=== PATIENT | female | born 1980 | race Asian ===

== ENCOUNTER 2017-07-12 11:41 | Emergency (ER) | payer MEDICAID, SELFPAY ==
[2017-07-12 11:44] VITALS: BP 134/86; PULSE 78; RESP 14; TEMP 36.6; O2SAT 100; BMI 36.5
--- NOTE | 2017-07-12 12:03 | ED.DCSUM_ITS ---
- ER Visit Summary Date of Service: 07/12/17 Chief Complaint: [Pain left leg] History of Present Illness: The patient is a 36 F [presents to the emergency department with pain in her left leg that started 4 days ago. Patient denies any significant trauma other than that she states that she picked her 3-year- old son up and felt initially a mild twinge of discomfort in her left leg and hip. Patient states progressively the pain is worsened and now describes a pain that starts posterior aspect of her left hip and radiates down the lateral aspect of her leg to about the knee. Patient denies any weakness in the extremity. Patient denies any back pain. Patient denies loss of bowel or bladder function. Patient denies saddle anesthesia. Patient was seen in urgent care yesterday and told use ibuprofen and follow-up with her primary care physician. Patient states the pain is made worse with walking and certain position movements.] Physical Examination: [HEENT-PERRLA, EOMI. Cranial nerves II through XII grossly intact. TMs clear. Mucous membranes moist. No adenopathy. Cardiovascular-regular rate and rhythm without murmur or ectopy Lungs-clear to auscultation, chest wall stable without crepitus or subcu emphysema Abdomen-normoactive bowel sounds, soft, nontender, no rebound or rigidity, no peritoneal signs. Back exam-patient has no tenderness over the thoracic or lumbar spine. Patient has negative straight leg raises bilaterally. Patient has no tenderness over the left piriformis. Deep tendon reflexes are plus 2 out of 4 bilaterally at the patella and Achilles. Patient has normal L5 extension bilaterally. Patient has normal sensation to light touch. Extremities-intact ?4, normal range of motion, normal pulses, atraumatic]. Patient has no edema of the left lower extremity. Patient does not have any tenderness to palpation over the lateral left thigh or left hip. Test Results: [None indicated] Emergency Department Course and Treatment: [Patient will be given a prescription for Triangle and Flexeril. Patient advised to follow-up with her primary care physician Dr. Angel Vincent within the next 5-7 days. Patient tells me that her sister has had some back issues with similar type pain radiating to her left leg and she has had some herniated disks in her back.] Treatment Plan: [Follow-up with primary care physician as if her symptoms persist or worsen may need imaging such as MRI. Patient will be given a prescription for Flexeril and Triangle] Disposition: [Discharged home in stable condition] Impression: [Sciatica] This note was generated with [employer] dictation software. It may contain incorrect words, spelling, and punctuation that were not noted in review of the chart prior to signing ED Disposition - Plan for ED Patient: Chief Complaint: Lower Extremity Injury Referrals: Angel Vincent MD [Primary Care Provider] -
--- NOTE | 2017-07-12 12:05 | DCINST.ED_ITS ---
ED Disposition - Plan for ED Patient: Chief Complaint: Lower Extremity Injury Instructions: ED Sciatica, Understanding Sciatica Prescriptions: Hydrocodone/Acetaminophen [[place] 5-325 Tablet] 1 - 2 ea PO 4X/DAY PRN PRN 5 Days #20 tab PRN Reason: Pain Cyclobenzaprine [Flexeril] 10 mg PO TID PRN #20 tab PRN Reason: Muscle Spasm Referrals: Angel Vincent MD [Primary Care Provider] - 5-7 Days
== END 2017-07-12 12:22 | disposition home or self-care (01) ==
PROVIDERS: Emergency Provider Emergency Medicine; Family Provider Internal Medicine; PCP Internal Medicine
DX: M54.32 Sciatica, left side (principal); J45.909 Unspecified asthma, uncomplicated; Z79.899 Other long term (current) drug therapy
CPT/HCPCS: 99282

== ENCOUNTER → 2017-10-29 16:55 | Outpatient (CLI) | payer MEDICAID, SELFPAY ==
--- NOTE | 2017-10-29 16:59 | CT_ITS ---
STUDY: CT MAXILLOFACIAL SINUSES REASON FOR EXAM: Female, 37 years old. Left nasal polyp RADIATION DOSAGE (If Supplied By Facility): CTDIvol = ( 33.06 ) mGy, DLP = ( 812.16 ) mGycm TECHNIQUE: The patient was scanned in a multi detector CT scanner. High resolution axial imaging was performed without the administration of intravenous contrast material. Sagittal and coronal images were reconstructed. Individualized dose optimization techniques were used for this CT. COMPARISON: None. FINDINGS: FRONTAL SINUSES: Normal aeration, without mucosal inflammatory disease. ETHMOIDAL SINUSES: There is a mucosal retention cyst or polyp within the left posterior ethmoid air cells MAXILLARY SINUSES: Normal aeration, without mucosal inflammatory disease. SPHENOIDAL SINUSES: Normal aeration, without mucosal inflammatory disease. There is patency of the bilateral maxillary infundibuli with normal uncinate processes, ethmoid bullae, and hiatus semilunaris. Deviation of nasal septum towards the right. Soft tissue thickening of the left middle turbinate which may be consistent with mucosal polyp There is patency of the bilateral nasal airways. The visualized osseous structures are normal. The visualized bilateral orbital contents are normal. CT/Sinus/Facial Bone IMPRESSION: Mucous retention cyst or polyp within the left posterior ethmoid air cells.. Soft tissue thickening of the left middle turbinate which may be consistent with small polyp. Clinical correlation recommended Electronically Signed: Andrei Murguia MD at 20:58 EDT , Service support ,
== END ==
PROVIDERS: Family Provider Internal Medicine; PCP Internal Medicine; Visit Provider Otolaryngology
DX: J33.9 Nasal polyp, unspecified (principal)
CPT/HCPCS: 70486

== ENCOUNTER → 2017-11-13 11:40 | Outpatient (CLI) | payer MEDICAID, SELFPAY ==
[2017-11-13 14:24] LABS: Erythrocyte Sedimentation Rate 60 mm/hr (0-20)
[2017-11-13 14:26] LABS: Absolute Lymphocyte Count 2.62 X10^3/ul (0.83-4.51); Absolute Neutrophil Count 6.8 X10^3/uL (2.0-7.7); Basophil# 0.04 X10^3/uL; Basophil% 0.4 % (0-1); Eosinophil# 0.22 X10^3/uL; Eosinophils% 2.2 % (0-5); Hematocrit 36.4 % (37-47); Hemoglobin 11.7 g/dl (12.0-15.0); Lymphocyte # 2.62 X10^3/ul (4.0); Lymphocyte % 25.8 % (19-41); Mean Corp Hgb Conc 32.1 g/gl (32-36); Mean Corpuscular Hgb 25.2 pg (27.0-32.0); Mean Corpuscular Volume 78.4 fL (81-99); Mean Platelet Vol. 11.9 fl (6.2-12.0); Monocyte# 0.44 X10^3/uL; Monocyte% 4.3 % (0-10); Neutrophil # 6.81 X10^3/uL (2.7-7.7); Platelet Count 360 K/mm3 (150-450); RBC Distribution Width CV 16.4 % (11.6-14.6); RBC Distribution Width SD 46.2 fl (35.1-43.9); Red Blood Count 4.64 M/mm3 (4.2-5.4); White Blood Count 10.2 K/mm3 (4.4-11.0)
[2017-11-13 14:27] LABS: POSITIVE COUNT NO; POSITIVE DIFFERENTIAL NO; POSITIVE MORPHOLOGY NO
[2017-11-13 14:41] LABS: Vitamin B12 331 pg/mL (211-911)
[2017-11-13 14:43] LABS: ALB/GLOB Ratio 0.6 RATIO (0.9-2.4); AST(SGOT) 16 U/L (15-37); Alanine Aminotransfer ALT/SGPT 22 U/L (13-56); Albumin, Serum 3.3 g/dL (3.2-5.0); Alkaline Phosphatase 117 U/L (45-117); Anion Gap 7 (5-15); BUN 9 mg/dL (7-18); BUN/Creat Ratio 11.2 RATIO (10-20); Chloride 108 mmol/L (98-107); EST Glomerular Filtration Rate 85 mL/min (>60); Est Glom Filt Rate - Afr Amer 103 mL/min (>60); Free T3 2.6 pg/mL (2.18-3.98); Globulin 5.3 g/dL (2.2-4.2); Glucose 88 mg/dL (74-106); Iron 53 ug/dL (50-170); Potassium 3.8 mmol/L (3.5-5.1); Protein, Total 8.6 g/dL (6.4-8.2); Sodium Level 138 mmol/L (136-145); Thyroid Stim Hormone (TSH) 4.52 uIU/mL (0.358-3.74)
== END ==
PROVIDERS: Family Provider Family Medicine; PCP Family Medicine; Visit Provider Family Medicine
DX: E03.9 Hypothyroidism, unspecified (principal); R53.83 Other fatigue
CPT/HCPCS: 36415; 80053; 82306; 82533; 82607; 83540; 84439; 84443; 84481; 85025; 85652

== ENCOUNTER → 2018-01-20 16:09 | Outpatient (CLI) | payer MEDICAID, SELFPAY ==
[2018-01-20 18:12] LABS: Vitamin D,25 Hydroxy 18.1 ng/mL (29.95-100.01)
[2018-01-20 18:19] LABS: Free T3 2.7 pg/mL (2.18-3.98); T4 Free Direct 1.12 ng/dL (0.76-1.46)
== END ==
PROVIDERS: Family Provider Family Medicine; PCP Family Medicine; Visit Provider Family Medicine
DX: E03.9 Hypothyroidism, unspecified (principal)
CPT/HCPCS: 36415; 82306; 84439; 84443; 84481

== ENCOUNTER 2018-04-13 06:59 | Emergency (ER) | payer MEDICAID, SELFPAY ==
[2018-04-13 07:00] VITALS: BP 144/75; PULSE 87; RESP 16; TEMP 36.7; O2SAT 100; BMI 40.8
--- NOTE | 2018-04-13 07:15 | ED.VISSUMM ---
- ER Visit Summary Date of Service: 04/13/18 Chief Complaint: Wheezing secondary to an asthma flare History of Present Illness: The patient is a 37 F history of asthma and hypothyroidism. He states the last week she has had an asthma flare with increased wheezing. No fever. No significant cough. No hemoptysis. No chest pain. No history of DVT or PE. No recent travel or surgery. Patient was treated by an urgent care with prednisone for 5 days and was given albuterol liquid for her nebulizer at home. She states she still wheezing. She is reluctant to take prednisone states that her body gets used to it and then needs it. Physical Examination: Middle-aged female. No acute distress. Vital signs are stable. She is afebrile. Her pulse ox is 100% on room air no hypoxia. H EENT exam unremarkable. Moist mucous membranes. Neck nontender no lymphadenopathy. Lungs bilateral inspiratory and expiratory wheezing. Equal and symmetrical. No rales nor rhonchi. Heart regular rhythm rate about 90 no murmur. Abdomen is soft and nontender. Normal bowel sounds. No peritoneal signs. She is moving all 4 extremities. Calves are nontender without edema. Neurologically she is awake and alert with no focal motor deficits. Test Results: None Emergency Department Course and Treatment: Patient's history and exam are consistent with an acute asthma flare. She will be treated with DuoNeb and albuterol aerosols. P.o. Decadron and reassess. Treatment Plan: On repeat exam at 07 41 patient is improved post aerosols. She will be discharged to home with Decadron daily for the next 7 days. And additional albuterol liquid for her nebulizer. She does return if feeling worse. Follow-up if she is not improving. Disposition: Discharge Impression: Acute asthma flare with bronchospasm This note was generated with [employer] dictation software. It may contain incorrect words, spelling, and punctuation that were not noted in review of the chart prior to signing ED Disposition - Plan for ED Patient: Disposition: Home or Assisted Living Instructions: ED Bronchitis Asthmatic Prescriptions: Albuterol Aerosols [Ventolin Aerosols] 2.5 mg INHALATION Q4H PRN #25 vial Dexamethasone [Decadron] 10 mg PO DAILY 7 Days tab Referrals: Lobo Byrne MD [Primary Care Provider] - 3-5 Days if not improving Additional Instructions: An inhaler and aerosols as needed. Decadron daily to decrease the inflammation in your lungs Follow-up with your primary care physician or your director council on aging Dr. Santiago Flores if not improving.
--- NOTE | 2018-04-13 07:17 | ED.DEP ---
ED Disposition - Plan for ED Patient: Disposition: Home or Assisted Living Instructions: ED Bronchitis Asthmatic Prescriptions: Albuterol Aerosols [Ventolin Aerosols] 2.5 mg INHALATION Q4H PRN #25 vial Dexamethasone [Decadron] 10 mg PO DAILY 7 Days tab Referrals: Lobo Byrne MD [Primary Care Provider] - 3-5 Days if not improving Additional Instructions: An inhaler and aerosols as needed. Decadron daily to decrease the inflammation in your lungs Follow-up with your primary care physician or your gl accountant Dr. Santiago Flores if not improving.
--- NOTE | 2018-04-13 07:20 | DCINST.ED_ITS ---
ED Disposition - Plan for ED Patient: Disposition: Home or Assisted Living Instructions: ED Bronchitis Asthmatic Prescriptions: Albuterol Aerosols [Ventolin Aerosols] 2.5 mg INHALATION Q4H PRN #25 vial Dexamethasone [Decadron] 10 mg PO DAILY 7 Days tab Referrals: Lobo Byrne MD [Primary Care Provider] - 3-5 Days if not improving Additional Instructions: An inhaler and aerosols as needed. Decadron daily to decrease the inflammation in your lungs Follow-up with your primary care physician or your contractor general engineering Dr. Santiago Flores if not improving.
[2018-04-13] MEDS: Ipratropium/Albuterol Sulfate 3 ML AMPUL.NEB INHALATION (07:23)
[2018-04-13] MEDS: Albuterol 2.5 MG/3 ML VIAL.NEB. INHALATION (07:23)
[2018-04-13 07:24] VITALS: PULSE 86; RESP 18; O2SAT 99
[2018-04-13 07:43] VITALS: BP 128/85; PULSE 71; RESP 24; O2SAT 100
== END 2018-04-13 07:45 | disposition home or self-care (01) ==
LOC: ED 07:43
PROVIDERS: Emergency Provider Emergency Medicine; Family Provider Family Medicine; PCP Family Medicine
DX: J45.901 Unspecified asthma with (acute) exacerbation (principal); E03.9 Hypothyroidism, unspecified
CPT/HCPCS: 94640; 99282

== ENCOUNTER → 2018-05-06 08:48 | Outpatient (CLI) | payer MEDICAID, SELFPAY ==
[2018-04-13 07:00] VITALS: BMI 40.8
[2018-05-06 10:42] LABS: Thyroid Stim Hormone (TSH) 3.47 uIU/mL (0.358-3.74)
[2018-05-06 12:22] LABS: Vitamin D,25 Hydroxy 18.8 ng/mL (29.95-100.01)
== END ==
PROVIDERS: Family Provider Family Medicine; PCP Family Medicine; Referring Provider Family Medicine; Visit Provider Family Medicine
DX: E03.9 Hypothyroidism, unspecified (principal); E55.9 Vitamin D deficiency, unspecified
CPT/HCPCS: 36415; 82306; 84439; 84443

== ENCOUNTER 2018-05-31 22:04 | Emergency (ER) | payer MEDICAID, SELFPAY ==
[2018-05-31 22:05] VITALS: BP 127/82; PULSE 94; RESP 20; TEMP 36.2; O2SAT 98; BMI 36.2
[2018-05-31] MEDS: Ipratropium/Albuterol Sulfate 3 ML AMPUL.NEB INHALATION (22:17)
[2018-05-31 22:18] VITALS: PULSE 94; RESP 18
--- NOTE | 2018-05-31 22:20 | ED.VISSUMM ---
- ER Visit Summary Date of Service: 05/31/18 Chief Complaint: [] Exacerbation of asthma wheezing History of Present Illness: The patient is a 37 F [] is a long history of asthma she reports for the last for 5 days she has had wheezing despite use of her home medications, she indicates she is supposed to be on a steroid inhaler but the insurance company will not approve that medication so she has not had it. She has had a slight cough minimal rhinorrhea. She indicates is her typical usual asthma exacerbation she has no history of heart disease [place] PE or DVT she lives with her children were generally healthy she does not work Followed by Dr. Joe Masters of pulmonary Physical Examination: [] This oximeter is 95% on room air, she speaking full sentences General, no distress resting comfortably HEENT is generally unremarkable The neck is supple no adenopathy Cardiovascular, regular rate and rhythm Lungs, few scattered wheezing with good excursion Abdomen, soft nontender Extremities, no clubbing cyanosis or edema Neurologic, awake alert answering questions appropriately moving all 4 extremities Test Results: [] Emergency Department Course and Treatment: [] Currently she looks well she indicates is her typical exacerbation she was to be on a steroid inhaler the insurance company rejected that she thinks that the the insurance company may have approved the inhaler but she has not had a chance to get another prescription and try again at this time we treated her with an aerosol oral drawn, she is feeling better she is comfortable discharge home and I will Symbicort or similar steroid inhaler prescription that she can try to get filled at the pharmacy she is to return for change in symptoms otherwise follow-up with her railroad emergency services manager Treatment Plan: [] Disposition: [] Home stable Impression: [] Exacerbation of asthma This note was generated with [employer] dictation software. It may contain incorrect words, spelling, and punctuation that were not noted in review of the chart prior to signing ED Disposition - Plan for ED Patient: Referrals: Lobo Byrne MD [Primary Care Provider] -
--- NOTE | 2018-05-31 22:23 | ED.DCSUM_ITS ---
- ER Visit Summary Date of Service: 05/31/18 Chief Complaint: [] Exacerbation of asthma wheezing History of Present Illness: The patient is a 37 F [] is a long history of asthma she reports for the last for 5 days she has had wheezing despite use of her home medications, she indicates she is supposed to be on a steroid inhaler but the insurance company will not approve that medication so she has not had it. She has had a slight cough minimal rhinorrhea. She indicates is her typical usual asthma exacerbation she has no history of heart disease [place] PE or DVT she lives with her children were generally healthy she does not work Followed by Dr. Joe Masters of pulmonary Physical Examination: [] This oximeter is 95% on room air, she speaking full sentences General, no distress resting comfortably HEENT is generally unremarkable The neck is supple no adenopathy Cardiovascular, regular rate and rhythm Lungs, few scattered wheezing with good excursion Abdomen, soft nontender Extremities, no clubbing cyanosis or edema Neurologic, awake alert answering questions appropriately moving all 4 extremities Test Results: [] Emergency Department Course and Treatment: [] Currently she looks well she indicates is her typical exacerbation she was to be on a steroid inhaler the insurance company rejected that she thinks that the the insurance company may have approved the inhaler but she has not had a chance to get another prescription and try again at this time we treated her with an aerosol oral drawn, she is feeling better she is comfortable discharge home and I will Symbicort or similar steroid inhaler prescription that she can try to get filled at the pharmacy she is to return for change in symptoms otherwise follow-up with her senior java programmer analyst Treatment Plan: [] Disposition: [] Home stable Impression: [] Exacerbation of asthma This note was generated with [employer] dictation software. It may contain incorrect words, spelling, and punctuation that were not noted in review of the chart prior to signing ED Disposition - Plan for ED Patient: Referrals: Lobo Byrne MD [Primary Care Provider] -
--- NOTE | 2018-05-31 22:23 | ED.DEP ---
ED Disposition - Plan for ED Patient: Instructions: ED Reactive Airway Disease Prescriptions: Budesonide/Formoterol Fumarate [Symbicort 160-4.5 Mcg Inhaler] 10.2 gm IH DAILY #1 hfa.[email or web address] Referrals: Lobo Byrne MD [Primary Care Provider] -
[2018-05-31 22:28] VITALS: PULSE 91; RESP 16; O2SAT 97; O2SAT 98
--- NOTE | 2018-05-31 23:03 | ED.DEP ---
ED Disposition - Plan for ED Patient: Instructions: ED Reactive Airway Disease Prescriptions: Albuterol Aerosols [Ventolin Aerosols] 2.5 mg INHALATION Q4H PRN #25 vial Albuterol Inhaler [Ventolin Hfa] 1 - 2 puff INHALATION Q4H PRN PRN #1 inhaler PRN Reason: Wheezing Budesonide/Formoterol Fumarate [Symbicort 160-4.5 Mcg Inhaler] 10.2 gm IH DAILY #1 hfa.[email or web address] Referrals: Lobo Byrne MD [Primary Care Provider] -
[2018-05-31 23:35] VITALS: BP 123/84; PULSE 79; RESP 15; O2SAT 97
== END 2018-05-31 23:37 | disposition home or self-care (01) ==
LOC: ED 22:32
PROVIDERS: Emergency Provider Emergency Medicine; Family Provider Family Medicine; PCP Family Medicine
DX: J45.901 Unspecified asthma with (acute) exacerbation (principal)
CPT/HCPCS: 94640; 99282

== ENCOUNTER → 2018-10-06 09:26 | Outpatient (CLI) | payer MEDICAID, SELFPAY ==
[2018-10-06 10:43] LABS: Absolute Lymphocyte Count 2.62 X10^3/uL (0.83-4.51); Absolute Neutrophil Count 6.1 X10^3/uL (2.0-7.7); Basophil# 0.08 X10^3/uL; Basophil% 0.8 % (0-1); Eosinophil# 0.27 X10^3/uL; Eosinophils% 2.8 % (0-5); Hematocrit 38.1 % (37-47); Hemoglobin 11.6 g/dL (12.0-15.0); Lymphocyte # 2.62 X10^3/ul (4.0); Lymphocyte % 27.4 % (19-41); Mean Corp Hgb Conc 30.4 g/dL (32-36); Mean Corpuscular Hgb 24.1 pg (27.0-32.0); Mean Platelet Vol. 11.3 fl (6.2-12.0); Monocyte# 0.42 X10^3/uL; Monocyte% 4.4 % (0-10); NRBC Flagged by Analyzer 0 % (0-5); Neutrophil # 6.13 X10^3/uL (2.7-7.7); Neutrophil % 64.3 % (47-70); Platelet Count 308 K/mm3 (150-450); RBC Distribution Width CV 15.2 % (11.6-14.6); RBC Distribution Width SD 43.8 fl (35.1-43.9); Red Blood Count 4.82 M/mm3 (4.2-5.4); White Blood Count 9.6 K/mm3 (4.4-11.0)
[2018-10-06 11:27] LABS: ALB/GLOB Ratio 0.6 RATIO (0.9-2.4); AST(SGOT) 27 U/L (15-37); Alanine Aminotransfer ALT/SGPT 31 U/L (13-56); Albumin, Serum 3.1 g/dL (3.2-5.0); Alkaline Phosphatase 101 U/L (45-117); Anion Gap 5 (5-15); BUN 11 mg/dL (7-18); BUN/Creat Ratio 14.9 RATIO (10-20); Chloride 115 mmol/L (98-107); Creatinine, Serum 0.74 mg/dL (0.55-1.02); EST Glomerular Filtration Rate 93 mL/min (>60); Est Glom Filt Rate - Afr Amer 113 mL/min (>60); Globulin 4.8 g/dL (2.2-4.2); Glucose 88 mg/dL (74-106); Potassium 4.1 mmol/L (3.5-5.1); Protein, Total 7.9 g/dL (6.4-8.2); Sodium Level 144 mmol/L (136-145); Thyroid Stim Hormone (TSH) 2.43 uIU/mL (0.358-3.74)
[2018-10-06 11:32] LABS: Vitamin D,25 Hydroxy 13.5 ng/mL (29.95-100.01)
== END ==
PROVIDERS: Family Provider Family Medicine; PCP Family Medicine; Referring Provider Family Medicine; Visit Provider Family Medicine
DX: R10.9 Unspecified abdominal pain (principal); E03.9 Hypothyroidism, unspecified; E55.9 Vitamin D deficiency, unspecified
CPT/HCPCS: 36415; 80053; 82306; 84439; 84443; 85025; 87086; 87088

== ENCOUNTER → 2018-12-09 11:26 | Outpatient (CLI) | payer MEDICAID, SELFPAY ==
[2018-12-09 13:19] LABS: Vitamin D,25 Hydroxy 14.3 ng/mL (29.95-100.01)
[2018-12-09 13:20] LABS: Thyroid Stim Hormone (TSH) 2.96 uIU/mL (0.358-3.74)
== END ==
PROVIDERS: Family Provider Family Medicine; PCP Family Medicine; Visit Provider Family Medicine
DX: E03.9 Hypothyroidism, unspecified (principal); E55.9 Vitamin D deficiency, unspecified
CPT/HCPCS: 36415; 82306; 84443

== ENCOUNTER → 2019-07-02 16:50 | Outpatient (CLI) | payer MEDICAID, SELFPAY ==
[2019-07-02 18:29] LABS: Vitamin D,25 Hydroxy 16.7 ng/mL
[2019-07-02 18:33] LABS: T4 Free Direct 1.11 ng/dL (0.76-1.46); Thyroid Stim Hormone (TSH) 2.64 uIU/mL (0.358-3.74)
== END ==
PROVIDERS: PCP Family Medicine; Visit Provider Family Medicine
DX: E03.9 Hypothyroidism, unspecified (principal); E55.9 Vitamin D deficiency, unspecified
CPT/HCPCS: 36415; 82306; 84439; 84443

== ENCOUNTER → 2019-09-23 13:49 | Outpatient (CLI) | payer MEDICAID, SELFPAY ==
--- NOTE | 2019-09-23 13:54 | CT_ITS ---
STUDY: CT MAXILLOFACIAL SINUSES REASON FOR EXAM: Female, 38 years old. PT STATED PERSISTENT CONGESTION AND NASAL DRIP, TRAY K[place]A RADIATION DOSAGE (If Supplied By Facility): CTDIvol = ( 33.45 ) mGy, DLP = ( 822.36 ) mGycm TECHNIQUE: The patient was scanned in a multi detector CT scanner. High resolution axial imaging was performed without the administration of intravenous contrast material. Sagittal and coronal images were reconstructed. Individualized dose optimization techniques were used for this CT. COMPARISON: Comparison is made with prior study dated 10/29/2017. FINDINGS: There are small benign appearing submental lymph nodes. FRONTAL SINUSES: Opacification of the frontal sinuses. ETHMOIDAL SINUSES: Opacification of the ethmoid sinuses. MAXILLARY SINUSES: There is partial opacification of the left maxillary sinus. Soft tissue prominence along the medial inferior wall of the left maxillary sinus with extension into the left nasal fossa as well as the left ethmoid sinus with bony destruction. This extends into the posterior aspect of the nasal fossa. Mucosal thickening of the right maxillary sinus with extension into the right ethmoid sinus and right nasal fossa. SPHENOIDAL SINUSES: Complete opacification of the sphenoid sinus. There is patency of the bilateral maxillary infundibuli with normal uncinate processes, ethmoid bullae, and hiatus semilunaris. Normal bilateral middle turbinates. Normal bilateral inferior turbinates. There is a right sided nasal septal deviation, but without a nasal septal spur. There is patency of the bilateral nasal airways. The visualized osseous structures are normal. The visualized bilateral orbital contents are normal. CT/Sinus/Facial Bone IMPRESSION: Pansinusitis with the prominence of the soft tissue in the nasopharynx suggestive of a possible nasal polyposis more prominent on the left side. Electronically Signed: Lamin Duvall, at 14:37 EDT , Service support ,
== END ==
PROVIDERS: PCP Family Medicine; Referring Provider Otolaryngology; Visit Provider Otolaryngology
DX: J32.9 Chronic sinusitis, unspecified (principal)
CPT/HCPCS: 70486

== ENCOUNTER 2019-11-09 10:13 | Day surgery (SDC) | payer MEDICAID, SELFPAY ==
[2019-11-02 13:06] LABS: Thyroid Stim Hormone (TSH) 0.09 uIU/mL (0.358-3.74)
[2019-11-05 14:09] LABS: Thyroid Stim Hormone (TSH) 0.09 uIU/mL (0.358-3.74)
[2019-11-09] VITALS (7 sets, daily range): BP systolic 117–137; BP diastolic 69–90; PULSE 75–95; RESP 16–18; TEMP 36.4–37.1; O2SAT 96–100; BMI 37.8
--- NOTE | 2019-11-09 | ETH_PTH ---
PATIENT: PAMELA SMITH LOC: [facility] U#:[id number] AGE/SX: 39/F ROOM: RE11/09/[address]: Dr. Sam Cox MD : 1980 BED: DIS: 11/09/2019 SPEC #: [id number] RECD: 11/09/19 14:32 STATUS: FABRICE LEODAN #: [id number] GONZÁLEZ: 11/09/19 00:[address]: Sam Cox DEPT: SURGICAL PATHOLOGY RECD BY: Roman Judge ENTERED: 11/10/19 07:44 SP TYPE: ETH TISS OTHR DR: Dr. Sancho Byrne MD Tissues: A - Ethmoid sinus, NOS B - Ethmoid sinus, NOS Procedures: Decalcification bone/plaque Surgery Specimen Level IV HEADER OPERATION: Ethmoidectomy, maxillary antrostomy with tissue removal PRE-OP DIAGNOSIS: Nasal cavity polyps, chronic sinusitis TISSUE SUBMITTED: A - Contents of right maxillary and ethmoid sinus, B - Contents of left maxillary and ethmoid sinus MICROSCOPIC DIAGNOSIS A. Right maxillary and ethmoid sinus contents, excision: Consistent with chronic sinusitis. Fibrinopurulent material. B. Left maxillary and ethmoid sinus contents, excision: Consistent with chronic sinusitis. Fibrinopurulent material. Minute fragments of unremarkable bone. AM:mitchell 11/13/19 MICROSCOPIC DESCRIPTION Slides are reviewed. GROSS DESCRIPTION A - Received in fixative is one container labeled with the patient's name and designated contents of right maxillary and ethmoid sinus. The specimen consists of multiple fragments of hemorrhagic soft tissue that in aggregate measure 5 x 4 x 1.5 cm. Auto Suspension And Steering Mechanic tissue is submitted in two cassettes. B - Received in fixative is one container labeled with the patient's name and designated contents of left maxillary and ethmoid sinus. The specimen consists of multiple fragments of rosenberg hemorrhagic soft tissue mixed with fragments of bone that in aggregate measure 4 x 4 x 1 cm. Auto Suspension And Steering Mechanic tissue is submitted in two cassettes. Cassette 1 is submitted after decalcification. / SJ:mitchell 11/10/19 TC:3 CPT: 05096 x2, 84337
[2019-11-09] MEDS: Lactated Ringers 1,000 ML 100 ML IV ×2 (11:00→14:25)
[2019-11-09 11:02] LABS: Internal QC Validated? YES +Cl - CLEAR BKGD; Pregnancy, Urine Negative Negative
--- NOTE | 2019-11-09 11:47 | PCM.DC ---
You will use the following diet at home:: Regular Your food should be the consistency of: Regular Discharge Activity: No Restrictions, - - no nose blowing Additional Activity Instructions:: Start irrigation 4x/day on 11/09/19 Allergies/Adverse Reactions: Allergies No Known Allergies Allergy (Verified 10/30/19 11:22) Medications to take at Discharge Levothyroxine [Synthroid] 112 mcg PO DAILY 08/24/16 Budesonide/Formoterol Fumarate [Symbicort 160-4.5 Mcg Inhaler] 10.2 gm IH DAILY #1 hfa.aer.ad 05/31/18 Fluticasone 0.05% [Flonase Nasal [place]] 1 spray NASAL DAILY 10/30/19 Omeprazole [Prilosec] 20 mg PO PRN PRN 10/30/19 Primary Care Physician: Lboo Byrne MD [Primary Care Provider] - Test Results: Test results from this visit will be discussed in further detail at your follow-up appointment, if applicable.
[2019-11-09] MEDS: Oxymetazoline 0.05% 1 SPRAY SPRAY.BTL 3 SPRAY NASAL (13:15)
--- NOTE | 2019-11-09 13:50 | PCM.OPRPT ---
Report of Operation Date of Procedure: 11/09/19 Pre-Operative Diagnosis: chronic sinusitis Post-Operative Diagnosis: same Surgery/Procedure Performed:: Bilateral total ethmoidectomy; bilateral sphenoidotomy; bilateral frontal sinusotomy; bilateral maxillary antrostomy. Use of navigation Description of Surgical Findings:: fungus in sphenoid, bilateral ethmoid and frontal sinuses Type of Anesthesia:: General Anesthesiologist: Jovi Quinn Estimated Blood Loss (mL): 50 cc Description of Procedure: The patient was taken to the operating room on 11/09/19. The patient was placed in the supine position on the operating table. The patient was given sufficient general endotracheal anesthesia. The head of bed was elevated 30 degrees. The navigation system was placed and verified per protocol and found to be accurate. 0 and 30 degrees rigid nasal endoscopes were used throughout the entire case. The middle turbinate uncinate process and polyps were injected with 1% lidocaine with epinephrine bilaterally. The right middle turbinate was medialized with a Marinette elevator. Polyp was removed from the middle meatus using a sinus shaver. A ball-tipped sinus seeker was placed into the patient's maxillary sinus. A back biter was used to create the antrostomy. The uncinate process was taken down using a microdebrider. Next, the ethmoid bulla was opened with a small curette. Anterior and posterior ethmoidectomy were then carried out using curette, sinus shaver and 45 degree Blakesley Malik forceps. Ethmoid cells were verified for relation to the skull base and orbit prior to being entered with the navigation system. The front face of the sphenoid was opened with a suction. Jake-Cut forceps were then used to widen the opening. Next, I used the navigation suction to localize the frontal sinus opening. Tissue was removed using 90 forceps to enlarge the opening. Fungus was removed with suction. I then placed Afrin pledgets into the sinonasal cavity. Next attention was turned to the left side. The middle turbinate was medialized with a Marinette elevator. A large polyp was removed from the middle meatus using a sinus shaver. The uncinate process was taken down using a sinus shaver. In doing so, the maxillary antrostomy was created. The ethmoid bulla was opened with a small curette. Anterior posterior ethmoidectomy were then carried out using a sinus shaver, curette and Blakesley Malik forceps. Fungus was encountered and removed using suction. Ethmoid cells were verified for relation to the skull base and orbit prior to being entered with the navigation system. There was a polyp occluding the natural sphenoid ostia. This was removed with a sinus shaver. The sphenoid was then opened on the left side using a sinus shaver and confirmed with navigation. A copious amount of fungus was then removed from the sphenoid using suction and irrigation. All irrigant was suctioned from the nasopharnx. A frontal sinusotomy was created with 90 degree Blakesly Malik forceps. Extensive fungus was removed from the frontal sinus with suction. Hemostasis was then achieved using Afrin pledgets. The pledgets were then removed bilaterally and Rivas powder was applied bilaterally for absolute hemostasis. The procedure was then terminated. The patient was then awoken and brought to the recovery room in stable condition blood loss 50 ccm, replacement none. Sponge, needle, instrument count were correct at the end of the procedure.
[2019-11-09] MEDS: HYDROCODONE/APAP 7.5-325/15ML 15 ML UDC 2 ML PO (15:04)
== END 2019-11-09 17:14 | disposition home or self-care (01) ==
LOC: SDC 10:13 → AC 10:14
PROVIDERS: Anesthesiology; PCP Family Medicine; Referring Provider Otolaryngology; Visit Provider Otolaryngology
PROC: (CPT 31257; principal; 2019-11-09 11:30)
DX: J32.8 Other chronic sinusitis (principal); J33.0 Polyp of nasal cavity; K21.9 Gastro-esophageal reflux disease without esophagitis; Z11.59 Encounter for screening for other viral diseases; Z79.899 Other long term (current) drug therapy; Z79.51 Long term (current) use of inhaled steroids; J45.909 Unspecified asthma, uncomplicated
CPT/HCPCS: 00160; 31257; 31267; 31276; 61782; 36415; 81025; 84443; 87077; 87102; 87206; 87635; 88305; 88311; C9803; J7120; J2405; U0003

== ENCOUNTER → 2020-04-15 09:35 | Outpatient (CLI) | payer MEDICAID, SELFPAY ==
[2019-11-09 10:50] VITALS: BMI 37.8
[2020-04-15 13:33] LABS: Anion Gap 8 (5-15); BUN 8 mg/dL (7-18); BUN/Creat Ratio 10.6 RATIO (10-20); Calcium,Total 9.2 mg/dL (8.5-10.1); Chloride 108 mmol/L (98-107); Cholesterol 165 mg/dL (200); Creatinine, Serum 0.75 mg/dL (0.55-1.02); EST Glomerular Filtration Rate 90 mL/min (>60); Est Glom Filt Rate - Afr Amer 109 mL/min (>60); Free T3 2.5 pg/mL (2.18-3.98); Glucose 87 mg/dL (74-106); High Density Lipoprotein 50 mg/dL; Potassium 3.8 mmol/L (3.5-5.1); Sodium Level 139 mmol/L (136-145); T4 Free Direct 1.07 ng/dL (0.76-1.46); Thyroid Stim Hormone (TSH) 1.87 uIU/mL (0.358-3.74); Triglycerides 77 mg/dL; Very Low Density Lipoprotein 15 mg/dL (5-40)
[2020-04-15 14:07] LABS: Vitamin D,25 Hydroxy 10.6 ng/mL
== END ==
PROVIDERS: PCP Family Medicine; Referring Provider Family Medicine; Visit Provider Family Medicine
DX: E55.9 Vitamin D deficiency, unspecified (principal); E03.9 Hypothyroidism, unspecified; Z13.220 Encounter for screening for lipoid disorders; Z13.1 Encounter for screening for diabetes mellitus
CPT/HCPCS: 36415; 80048; 80061; 82306; 84439; 84443; 84481

== ENCOUNTER 2020-05-13 12:12 | Emergency (ER) | payer MEDICAID, SELFPAY ==
[2019-11-09 10:50] VITALS: BMI 37.8
[2020-05-13 12:13] VITALS: BP 153/94; PULSE 81; RESP 18; TEMP 36.6; O2SAT 99; BMI 35.9
--- NOTE | 2020-05-13 12:35 | CT_ITS ---
STUDY: CT BRAIN WITHOUT CONTRAST REASON FOR EXAM: Female, 39 years old. Headache, sinus pressure RADIATION DOSAGE (If Supplied By Facility): CTDIvol = ( 38.43 ) mGy, DLP = ( 655.05 ) mGycm TECHNIQUE: Transaxial CT imaging of the brain was performed without administration of intravenous contrast material. Individualized dose optimization techniques were used for this CT. COMPARISON: No relevant priors. FINDINGS: Normal soft tissue structures. Normal calvarium. Normal size ventricles and extra-axial spaces for the patient''s age. Normal white matter tracts of the cerebral hemispheres. Normal basal ganglia and thalami. Normal brainstem. Normal cerebellum. There is no intracranial hemorrhage. There are no findings of an acute ischemic infarction. There is opacification of the right maxillary sinus suggestive of a chronic changes with hyperdensity. Opacification of the ethmoid sinuses bilaterally as well as the sphenoid sinus. Mucosal thickening of the left maxillary sinus. Opacification of the frontal sinuses. CT/Brain/Head without Contrast IMPRESSION: MAE sinusitis. Electronically Signed: Lamin Duvall MD at 13:13 EDT , Service support ,
[2020-05-13] MEDS: Ketorolac 15 MG/ML Vial IV (12:52)
[2020-05-13] MEDS: DiphenhydrAMINE 50 MG/ML Syringe 25 MG IV (12:52)
[2020-05-13] MEDS: Metoclopramide 10 MG/2 ML Vial IV (12:53)
[2020-05-13] MEDS: 0.9% Normal Saline 1,000 ML 999 ML IV (12:53)
--- NOTE | 2020-05-13 13:46 | ED.VISSUMM ---
- ER Visit Summary Date of Service: 05/13/20 Chief Complaint: Headache History of Present Illness: The patient is a 39 F [] Physical Examination: [] Test Results: [] Emergency Department Course and Treatment: [] Treatment Plan: [] Disposition: [] Impression: [] This note was generated with [employer] software. It may contain incorrect words, spelling, and punctuation that were not noted in review of the chart prior to signing ED Disposition - Plan for ED Patient: Referrals: Lobo Byrne MD [Primary Care Provider] -
--- NOTE | 2020-05-13 13:51 | ED.DCSUM_ITS ---
- ER Visit Summary Date of Service: 05/13/20 Chief Complaint: Headache History of Present Illness: The patient is a [address] Chapa. Patient reports that she had surgery on her sinuses in October [address] Sam Cox. States that last month she was placed on cefdinir for a sinus infection. She feels that way again currently. Patient reports that she has a headache that is at the bridge of her nose and behind both eyes began approximately 1 week ago. Is gradually gotten worse. Is sharp pain is 10 of 10 at worst 9-10 currently. Is worsened by leaning her head forward. Relieved by ibuprofen. She denies any constitutional symptoms. No fever, chills, nausea, or vomiting. No numbness or weakness. No change in her vision. Physical Examination: Vitals: Stable. Afebrile. General: Well-nourished and well-developed. Head: Normocephalic atraumatic. Neck: Supple, no lymphadenopathy. No JVD. Nontender. Cardiovascular: Regular rate and rhythm. No murmurs. Respiratory: No respiratory distress. Clear to auscultation bilaterally. Abdominal: Soft, nontender, nondistended, normal bowel sounds. No guarding, rebound, or peritoneal signs. Back: Nontender. Extremities: Nontender, no edema. Skin: Normal color, no rash. Neurologic: Alert and oriented ?3. Cranial nerves II through XII are intact. Normal strength and sensation. Psych: Normal affect. Test Results: Clinical Impression(s) from Imaging Studies Brain CT 05/13/20 12:35 IMPRESSION: MAE sinusitis. Electronically Signed: Lamin Duvall MD at 13:13 EDT , Service support , Emergency Department Course and Treatment: Patient was given Toradol, Benadryl, and Reglan IV. She was given Levaquin p.o. Treatment Plan: Patient was discussed with Dr. Calle who reviewed the CT and her surgery results. She had a fungal infection at in October. He would like her placed on Levaquin, Medrol Dosepak, and instructed to irrigate her nose. Follow-up Dr. Sam Cox in a week for another exam. Return to the emergency department for any worsening symptoms. Disposition: To home in improved and stable condition. Impression: 1. Pansinusitis. This note was generated with [employer] dictation software. It may contain incorrect words, spelling, and punctuation that were not noted in review of the chart prior to signing ED Disposition - Plan for ED Patient: Instructions: ED Sinus Headache Prescriptions: Levofloxacin [Levaquin] 750 mg PO DAILY #10 tablet MethylPREDNISolone DosePak [Medrol DosePak] 4 mg PO UD #1 box Naproxen [Naprosyn] 500 mg PO BID #14 tablet Hydrocodone Bitart/Apap 5-325 [[place] 5MG-325MG] 1 tablet PO Q4H PRN PRN 2 Days #10 tablet PRN Reason: Pain Referrals: Sam Cox MD [STAFF PHYSICIAN] - 10-14 Days if not better
[2020-05-13] MEDS: MethylPREDNISolone 125 MG/2 ML Vial IV (14:06)
[2020-05-13] MEDS: levoFLOXacin 750 MG Tablet PO (14:06)
[2020-05-13 14:34] VITALS: BP 142/78; PULSE 89; RESP 16; O2SAT 99
== END 2020-05-13 14:35 | disposition home or self-care (01) ==
PROVIDERS: Emergency Provider Emergency Medicine; PCP Family Medicine
DX: J32.4 Chronic pansinusitis (principal); J45.909 Unspecified asthma, uncomplicated
CPT/HCPCS: 70450; 96361; 96374; 96375; 99283; J7030; A4216

== ENCOUNTER → 2020-08-01 15:43 | Outpatient (CLI) | payer MEDICAID, SELFPAY | PROVIDERS: PCP Family Medicine; Visit Provider Family Medicine | DX: E55.9 Vitamin D deficiency, unspecified (principal) | CPT/HCPCS: 36415; 82306 ==

== ENCOUNTER → 2020-08-05 12:32 | Outpatient (CLI) | payer MEDICAID, SELFPAY ==
[2020-08-05 15:33] LABS: Vitamin B12 448 pg/mL (211-911)
[2020-08-05 15:39] LABS: Hematocrit 36.8 % (37-47); Hemoglobin 11.1 g/dL (12.0-15.0); Mean Corp Hgb Conc 30.2 g/dL (32-36); Mean Corpuscular Hgb 23.4 pg (27.0-32.0); Mean Corpuscular Volume 77.6 fL (81-99); Mean Platelet Vol. 12.1 fl (6.2-12.0); Platelet Count 331 K/mm3 (150-450); RBC Distribution Width CV 16.3 % (11.6-14.6); RBC Distribution Width SD 45.7 fl (35.1-43.9); Red Blood Count 4.74 M/mm3 (4.2-5.4); White Blood Count 10.3 K/mm3 (4.4-11.0)
[2020-08-05 15:44] LABS: ALB/GLOB Ratio 0.8 RATIO (0.9-2.4); AST(SGOT) 20 U/L (15-37); Alanine Aminotransfer ALT/SGPT 26 U/L (13-56); Albumin, Serum 3.5 g/dL (3.2-5.0); Alkaline Phosphatase 130 U/L (45-117); Anion Gap 6 (5-15); BUN 10 mg/dL (7-18); BUN/Creat Ratio 12.5 RATIO (10-20); Chloride 106 mmol/L (98-107); EST Glomerular Filtration Rate 84 mL/min (>60); Est Glom Filt Rate - Afr Amer 102 mL/min (>60); Globulin 4.6 g/dL (2.2-4.2); Glucose 115 mg/dL (74-106); Iron 36 ug/dL (50-170); Potassium 3.8 mmol/L (3.5-5.1); Protein, Total 8.1 g/dL (6.4-8.2); Rheumatoid Factor < 10.0 IU/mL (<15); Sodium Level 140 mmol/L (136-145); T4 Free Direct 1.05 ng/dL (0.76-1.46); Thyroid Stim Hormone (TSH) 2.09 uIU/mL (0.358-3.74)
[2020-08-05 15:55] LABS: Erythrocyte Sedimentation Rate 36 mm/hr (0-30)
[2020-08-07 14:17] LABS: ANTINUCLEAR ANTIBODIES DIRECT Negative (Negative)
== END ==
PROVIDERS: PCP Family Medicine; Referring Provider Family Medicine; Visit Provider Family Medicine
DX: M79.10 Myalgia, unspecified site (principal); R53.83 Other fatigue; E03.9 Hypothyroidism, unspecified
CPT/HCPCS: 36415; 80053; 82607; 83540; 84439; 84443; 85027; 85652; 86038; 86140; 86431

== ENCOUNTER 2020-09-22 11:53 | Day surgery (SDC) | payer MEDICAID, SELFPAY ==
--- NOTE | 2020-09-02 09:14 | PCM.HP.BLA ---
History and Physical Date of Admission: 09/02/20 [facility] 09/02/2020 OB/Gynecology Abi Scott MD MARINE PAINTER Abnormal uterine bleeding (AUB) +2 more Dx Telemedicine; Referred by Self Reason for Visit Progress Notes Abi Scott MD (Physician) ? ? MARINE PAINTER Expand AllCollapse All VIRTUAL VISIT H&P NOTE ? This is a virtual visit using Alternative video platform. It required patient-provider interaction for the medical decision making as documented below. ? Darinel Corral is a 39 year old female seen for preoperative visit for hysteroscopy, D&C possible suction D&C for likely retained products of conception after an elective termination of in June 2020-surgery scheduled for [facility] on September 06, 2020. Patient reports has been having bleeding since her D&C light bleeding. Patient underwent pelvic ultrasound which shows a heterogeneous mass that demonstrates vascularity with fluid on the posterior aspect the mass measures 2.7 x 1.9 cm. This could potentially represent products of conception. Patient was placed on doxycycline 100 mg twice daily for 10 days. Patient offers no other concerns at this time. ? HISTORY REVIEWED (electronic chart updated): PAST MEDICAL HISTORY PAST MEDICAL HISTORY Diagnosis Date ? Acquired hypothyroidism 04/04/2017 ? Severe persistent asthma without complication ? ? PAST SURGICAL HISTORY PAST SURGICAL HISTORY Procedure Laterality Date ? SECTION HX ? 2014 ? 2007, ? FARZANA US GUIDED NEEDLE BREAST BIOPSY RT Right 2016 ? breast cyst, benign ? NASAL SURGERY PROCEDURE ? 11/16/2019 ? REDUCTION OF LARGE BREAST Bilateral 2011 ? FAMILY HISTORY FAMILY HISTORY Problem Relation Age of Onset ? other (Other) Mother ? ? low blood pressure ? Hypertension Father ? ? Diabetes Father ? ? other (Other) Sister ? ? pituitary tumor, benign ? None Brother ? ? Asthma Paternal Grandmother ? ? SOCIAL HISTORY Social History ? Tobacco Use ? Smoking status: Never Smoker ? Smokeless tobacco: Never Used ? Tobacco comment: No smoking in childhood or current home. Vaping Use ? Vaping Use: Never used Substance Use Topics ? Alcohol use: No ? Drug use: No ? CURRENT MEDICATIONS Current Outpatient Medications Medication Sig ? doxycycline (VIBRA-TABS) 100 mg tablet Take 1 tablet by mouth twice daily for 10 days. ? norgestimate 0.25 mg-ethinyl estradiol 35 mcg (SPRINTEC) 0.25-35 mg-mcg per tablet Take 1 tablet by mouth once daily. ? omeprazole (PRILOSEC) 20 mg capsule take 1 capsule by mouth twice a day (Patient not taking: Reported on 08/19/2020) ? budesonide-formoterol (SYMBICORT) 160-4.5 mcg/actuation inhaler Inhale 2 Puffs as instructed twice daily. ? albuterol (PROVENTIL) 2.5 mg /3 mL (0.083 %) nebulizer solution Use 3 mL via nebulizer every 4 hours as needed for Wheezing/Shortness of Breath. Use over 5-15minutes. ? cholecalciferol, vitamin D3, 50,000 unit tab Take by mouth once each week. ? fluticasone (FLONASE) 50 mcg/actuation nasal spray Use 2 Sprays in each nostril once daily. ? No current facility-administered medications for this visit. ALLERGIES ALLERGIES No Known Allergies ? REVIEW OF SYSTEMS: GENERAL: feeling well without fatigue, no recent change in weight, no fever ? PHYSICAL EXAMINATION: ? VIDEO EXAM: (if completed, performed via video enabled technology) GENERAL: alert and appropriate, in no distress, well-hydrated, well nourished and happy, smiling, interactive SKIN: no rash noted HEAD: normocephalic, no abnormality or lesion noted NEUROLOGIC: no obvious deficit ? ASSESSMENT: (N93.9) Abnormal uterine bleeding (AUB) (primary encounter diagnosis) (O03.4) Retained products of conception following (E34.9) Elevated serum hCG ? PLAN: Hysteroscopy, D&C possible suction D&C. ? Pt has been counseled on risks/benefits and alternatives of surgery including but not limited to anesthesia, bleeding, infection, uterine perforation with subsequent injury to pelvic structures including bowel, bladder, ureters and vessels. Pt wishes to proceed with surgery at this time. ? Will sign consent day of surgery PRE and POST op instructions reviewed ? ? There are no Patient Instructions on file for this visit. ? Medical Decision Making: ? Problems: Moderate: New problem with uncertain prognosis Risk: Moderate: Decision on minor surgery w/ risk factors ? Medical Decision Making Level: 4 - Moderate ? Abi Helms MD v
[2020-09-22] VITALS (11 sets, daily range): BP systolic 109–129; BP diastolic 65–81; PULSE 84–104; RESP 14–16; TEMP 35.9–36.7; O2SAT 95–100; BMI 36.7
[2020-09-22 12:33] LABS: Internal QC Validated? YES +Cl - CLEAR BKGD; Pregnancy, Urine Negative Negative
[2020-09-22 12:44] LABS: Hematocrit 39.2 % (37-47); Hemoglobin 11.9 g/dL (12.0-15.0); Mean Corp Hgb Conc 30.4 g/dL (32-36); Mean Corpuscular Hgb 22.8 pg (27.0-32.0); Mean Platelet Vol. 10.7 fl (6.2-12.0); Platelet Count 386 K/mm3 (150-450); RBC Distribution Width CV 16.9 % (11.6-14.6); RBC Distribution Width SD 45.1 fl (35.1-43.9); Red Blood Count 5.23 M/mm3 (4.2-5.4); White Blood Count 11.1 K/mm3 (4.4-11.0)
[2020-09-22] MEDS: Lactated Ringers 1,000 ML 100 ML IV (12:45)
[2020-09-22] MEDS: Doxycycline 100 MG CAPSULE 200 MG PO (12:45)
[2020-09-22] MEDS: Lidocaine 1% (20 ml mdv) 20 ML Vial (13:21)
--- NOTE | 2020-09-22 13:22 | OP.PCM_ITS ---
Report of Operation Date of Procedure: 09/22/20 Pre-Operative Diagnosis: AUB, Retained POC Post-Operative Diagnosis: same Surgery/Procedure Performed:: Hysteroscopy, Suction D&C Description of Surgical Findings:: small amount of possible Retained POC in uterus. both tubal ostia are visualized Surgeon: Abi Helms Type of Anesthesia: Local MAC Special Medications: 1% lidocaine Specimen's removed: Products of conception, Endometrial Curetting Drains: none Estimated Blood Loss (mL): <5cc Fluids Replaced: 500 Description of Procedure: After informed consent was obtained patient was taken to OR and placed in supine position. Anesthesia was given. patient was placed in yellow fin stirrups and prepped and draped in normal sterile fashion. bladder was drained with straight catheter. Weighted speculum placed in posterior fornix of vaginal, single tooth tenaculum was used to gently grasped anterior lip of cervix. . Cervix was then gently dilated in an incremental fashion. Was adequate dilation was achieved the 3mm Hysteroscope was inserted, Some tissue likely consistent with POC was seen on posterior aspect of uterus. at this time Suction D&C performed. A 6mm [place] island[place] suction catheter was placed. suction curettage performed until no tissue was expelled and cavity was deemed empty. Very gentle sharp curettage was performed- no further tissue remained. The tissue was then sent to pathology for examination. No complications. At this time procedure was deemed complete and successful. Tenaculum removed, speculum removed. Good hemostasis appreciated. Vaginal sweep was negative. Instrument and lap count correct x 2. I anticipate normal postoperative course. Grafts/Implants Used: none Procedure Start Time: 13:10 Procedure Stop Time: 13:21 Complications none Admit VTE Documentation VTE Present on Admission: Yes VTE Mechan Device Prophylaxis: SCD's VTE Pharm Prophylaxis ordered?: No Reason prophylaxis not ordered:: Procedure Not Indicated
--- NOTE | 2020-09-22 13:26 | EX.PCM.DISCH ---
Discharge Instructions Procedure D&C Diet Discharge Diet: No restrictions Activity May resume sexual activity in: 1 week Dressing / Incision Call your doctor if you observe: Fever of 101 or Higher, Inability to urinate, Using more than 1 pad per hour and Uncontrolled pain Follow Up Care Please Follow Up With: Abi Helms MD When: 1-2 weeks post OP if you need an appointment please call [phone] Test Results: Test results from this visit will be discussed in further detail at your follow-up appointment, if applicable. Discharge Plan Admission Attending Provider: Abi Helms Primary Care Provider: Lobo Byrne Discharge Orders/Prescriptions Prescriptions: No Action budesonide-formoterol 6 GM HFA aerosol inhaler 10.2 gm IH DAILY Qty: 1 RF: 0 fluticasone propionate 1 SPRAY spray,suspension 1 spray NASAL DAILY RF: 0 omeprazole 20 MG capsule 20 mg PO PRN PRN (Reason: GERD) RF: 0 cholecalciferol (vitamin D3) [Vitamin D3] 50 mcg (2,000 unit) Tablet 50 mcg PO DAILY RF: 0 Disposition Discharge Orders: Discharge Patient (Routine); Ordered 09/22/20 Ordered By: Dr. Abi Helms
--- NOTE | 2020-09-22 13:35 | POC_PTH ---
PATIENT: PAMELA SMITH LOC: [facility] U#:[id number] AGE/SX: 39/F ROOM: RE09/22/[address]: Dr. Aib Helms, MDDOB: 1980 BED: DIS: 09/22/2020 SPEC #: [id number] RECD: 09/22/20 15:08 STATUS: FABRICE ALCOCER #: [id number] GONZÁLEZ: 09/22/20 13:[address]: Abi Helms DEPT: SURGICAL PATHOLOGY RECD BY: April Sharma ENTERED: 09/23/20 08:29 SP TYPE: PROD CONC OTHR DR: Dr. Sancho Byrne MD Tissues: Product of conception, NOS Procedures: Surgery Specimen Level IV HEADER OPERATION: Hysteroscopy, suction dilation and curettage PRE-OP DIAGNOSIS: Abnormal uterine bleeding, retained products of conception TISSUE SUBMITTED: Products of conception MICROSCOPIC DIAGNOSIS Endometrium, curettage: Transition endometrium. Rare fragments of benign squamous mucosa. See comment. AM:mitchell 09/26/2020 COMMENT Chorionic villi, decidualized stroma or trophoblastic cells are not identified. Clinical correlation is suggested. MICROSCOPIC DESCRIPTION Slides are reviewed. GROSS DESCRIPTION Received in fixative is one container labeled with the patient's name and designated endometria curettings. The specimen consists of multiple irregular fragments of light to dark rosenberg soft tissue that in aggregate measure 3 x 2 x 0.2 cm. The specimen is totally submitted in one cassette. / AM:mitchell 09/23/20 TC:5 [facility]: [id number]
[2020-09-22] MEDS: HYDROcodone Bitartrate/Apap 5/325 Tablet PO (14:52)
== END 2020-09-22 15:27 | disposition home or self-care (01) ==
LOC: SDC 11:54 → AC 11:55
PROVIDERS: Anesthesiology; PCP Family Medicine; Referring Provider Obstetrics & Gynecology; Visit Provider Obstetrics & Gynecology
PROC: 0UDB8ZZ Extraction of Endometrium, Via Natural or Artificial Opening Endoscopic (ICD-10-PCS; CPT 58558; principal; 2020-09-22 13:20)
DX: O03.4 Incomplete spontaneous abortion without complication (principal); K21.9 Gastro-esophageal reflux disease without esophagitis; M19.90 Unspecified osteoarthritis, unspecified site
CPT/HCPCS: 59812; 81025; 85027; 88305; J7120

== ENCOUNTER 2020-10-24 19:51 | Emergency (ER) | payer MEDICAID, SELFPAY ==
[2020-10-24 19:52] VITALS: BP 144/78; PULSE 90; RESP 18; TEMP 37.1; O2SAT 98; BMI 35.9
[2020-10-24 21:39] LABS: Mucous, Urine 0 SEEN /hpf (<or=2+); White Blood Cells 0 SEEN /hpf (0-5)
--- NOTE | 2020-10-24 21:46 | ED.VIS.FEGU ---
HPI HPI - Female History of Present Illness Chief Complaint: Female C/O Narrative Narrative: Patient presenting for evaluation secondary to pelvic pain. Patient reports to me that she is 1 month status post hysterectomy secondary to abnormal vaginal bleeding. Patient states that over the course last 3 days she has been dealing with pelvic pain. She reports that it is a sharp cramping type sensation that has been associated with some dysuria. She denies any hematuria. She denies any vaginal discharge. She does state that this would be the normal timing for her menses. She denies any fevers nausea vomiting or diarrhea associated with this. Patient reports that she called her [employer]ICE PRESIDENT UND[employer]WRITING and they recommended that she come to the emergency department for this. No real exacerbating relieving factors. Review of systems otherwise negative. [facility] Medical History Arthritis Asthma Chronic cough Gastric reflux Non-smoker Shortness of breath on exertion Home Medications budesonide-formoterol 10.2 gm IH DAILY #1 hfa.aer.ad 05/31/18 [Rx Last Taken 11/09/19 07:00] fluticasone propionate 1 spray NASAL DAILY 10/30/19 [History Last Taken Unknown] omeprazole 20 mg PO PRN PRN 10/30/19 [History Last Taken Unknown] cholecalciferol (vitamin D3) [Vitamin D3] 50 mcg PO DAILY 09/15/20 [History Last Taken Unknown] ibuprofen 400 mg PO Q6H PRN 10/24/20 [History Last Taken Unknown] Allergy/AdvReac Type Severity Reaction Status Date / Time No Known Allergies Allergy Verified 10/24/20 19:53 Surgical History History of bilateral breast reduction surgery History of History of ethmoidectomy History of hysterectomy Social History Smoking Status: Never smoker ROS ROS ED Constitutional Constitutional ED: Denies chills or fever(s) ENT ENT ED: Denies sore throat Cardiovascular Cardiovascular: Denies chest pain Respiratory/Chest Respiratory/Chest: Denies cough or dyspnea Gastrointestinal Gastrointestinal: Reports abdominal pain Genitourinary Genitourinary ED: Reports dysuria Musculoskeletal Musculoskeletal: Denies myalgias Integumentary Denies rash Neurologic Neurologic: Denies paresthesias or weakness Psychiatric Psychiatric: Denies depression Endocrine Endocrinology: Denies polyuria Hematologic/Lymphatic Hematologic/Lymphatic: Denies easy bleeding or easy bruising Allergic/Immunologic Allergic/Immunologic ED: Denies urticaria EXAM Physical Exam Const Vital Signs: 10/24/20 19:52 Temperature 98.7 F Temperature Source Temporal Pulse Rate 90 Respiratory Rate 18 Blood Pressure 144/78 H Blood Pressure Mean 100 Pulse Ox 98 Oxygen Delivery Method Room Air Positive well nourished and well developed General Appearance ED: well developed and NAD HEENT normocephalic and atraumatic Eyes EOMs intact bilaterally General Eye ED: Negative for pale conjunctiva or scleral icterus Neck no lymphadenopathy and supple Resp normal respiratory effort and clear to auscultation bilaterally Cardio regular rate, regular rhythm, no murmurs and peripheral pulses 2+ throughout GI non-distended and no masses GI Narrative: Suprapubic tenderness to palpation no guarding or rebound. No evidence of surgical incisions on the abdomen Palpation: soft; Negative for guarding, rigid or rebound tenderness present Back/Spine no CVA tenderness Extremity full ROM General Extremety ED: Negative for edema General Extremity: Negative for edema Neuro moves all extremities and no sensory deficits noted Sensorium / Orientation: alert, oriented to person, oriented to place and oriented to time Motor Exam: strength 5/5 throughout Psych mental status grossly normal Skin Rashes: no rashes MDM MDM MDM Narrative Medical decision making narrative: Patient presented with suprapubic pain and dysuria. She reported she had a recent hysterectomy. Urinalysis was initially obtained which was found to be negative. Given the fact that the patient tells me that she had a recent surgical procedure I performed labs and CT scan she was given Toradol for treatment of her pain. CBC and chemistry were found to be unremarkable. CT abdomen and pelvis per radiology was found to be negative. I reviewed patient's records, she actually did not have a hysterectomy but had a hysteroscopy with evacuation of products of conception. Patient states that now would be around the typical time for her menses, I believe that this is simply dysmenorrhea. Patient was given reassurance, she was recommended conservative management measures. Patient was discharged in stable condition. Lab Data Labs: Laboratory Results - last 24 hr 10/24/20 10/24/20 10/24/20 21:30 22:23 22:23 WBC 9.9 RBC 4.60 Hgb 10.5 L Hct 35.8 L MCV 77.8 L MCH 22.8 L MCHC 29.3 L RDW Std Deviation 50.1 H RDW Coeff of Farn 17.9 H Plt Count 349 MPV 10.9 Immature Gran % (Auto) 0.400 Neut % (Auto) 55.0 Lymph % (Auto) 35.0 Swain % (Auto) 6.2 Eos % (Auto) 2.8 Baso % (Auto) 0.6 Absolute Neuts (auto) 5.5 Absolute Lymphs (auto) 3.47 Nucleated RBC % 0 Sodium 140 Potassium 4.0 Chloride 107 Carbon Dioxide 26.0 Anion Gap 7 BUN 12 Creatinine 0.66 Estim Creat Clear Calc 84.65 Est GFR (MDRD) Af Amer 127 Est GFR (MDRD) Non-Af 105 BUN/Creatinine Ratio 18.2 Glucose 105 Calcium 8.5 Urine Color Yellow Urine Clarity Sl. Cloudy Urine pH 7.0 Ur Specific [place] 1.010 Urine Protein Negative Urine Glucose (UA) Normal Urine Ketones Negative Urine Occult Blood Negative Urine Nitrite Negative Urine Bilirubin Negative Urine Urobilinogen Normal Ur Leukocyte Esterase Negative Urine RBC 0-5 SEEN Urine WBC 0 SEEN Ur Squamous Epith Cells 0-5 SEEN Urine Bacteria RARE Urine Mucus 0 SEEN Radiography Diagnostic Testing: Radiology Impression Abdomen/Pelvis CT 10/24/20 22:09 IMPRESSION: No acute abnormalities in the abdomen or pelvis. Electronically Signed: Sancho Hopper MD at 23:35 EDT Tel , Service support , Discharge Plan Triage Chief Complaint: Female C/O ED Provider: Eduardo Lu Dx/Rx/DC Orders Clinical Impression: Dysmenorrhea Prescriptions: No Action budesonide-formoterol 6 GM HFA aerosol inhaler 10.2 gm IH DAILY Qty: 1 RF: 0 fluticasone propionate 1 SPRAY spray,suspension 1 spray NASAL DAILY RF: 0 omeprazole 20 MG capsule 20 mg PO PRN PRN (Reason: GERD) RF: 0 cholecalciferol (vitamin D3) [Vitamin D3] 50 mcg (2,000 unit) Tablet 50 mcg PO DAILY RF: 0 ibuprofen 200 mg Tablet 400 mg PO Q6H PRN (Reason: Pain) RF: 0 Primary Care Provider: Lobo Byrne Referrals: Lobo Byrne MD [Primary Care Provider] - As Needed Disposition Disposition: Home, Self Care
[2020-10-24 21:49] LABS: Color, Urine Yellow (Yellow); Glucose, Dipstick Normal (Normal); Ketone-Dipstick Negative (Negative); Leukocyte Esterase-Dipstick Negative /ul (Negative); Nitrite-Dipstick Negative (Negative); Occult Blood-Urine Negative /ul (Negative); Protein-Dipstick Negative (Negative); Urine Bilirubin Dipstick Negative (Negative); Urine Clarity Sl. Cloudy (Clear); Urine Urobilinogen Normal (Normal)
[2020-10-24 22:00] LABS: Bacteria RARE /hpf (None Seen); Red Blood Cells-Urine 0-5 SEEN /hpf (0-5); Squamous Epithelial Cells - UA 0-5 SEEN /hpf (5-10)
--- NOTE | 2020-10-24 22:09 | CT_ITS ---
INDICATION: Pelvic pain EXAMINATION: CT Abdomen And Pelvis W/ Contrast Injection TECHNIQUE: Helically acquired images were obtained of the abdomen and pelvis after IV contrast. A radiation dose optimization technique was used for this scan. IV Contrast dosage and agent: IV 100mL [id number]-300 Oral contrast: None. COMPARISON: None. FINDINGS: Visualized lung bases: Unremarkable Liver: Unremarkable Gallbladder: Contracted. Spleen: Unremarkable Pancreas: Unremarkable Adrenal Glands: Unremarkable Kidneys: 1.7 cm simple cyst in the right lower pole. Vasculature: Unremarkable GI Tract: Unremarkable Lymphadenopathy: None Peritoneum: No ascites. Bladder: Unremarkable Reproductive organs: Unremarkable Bones/Soft tissues: No suspicious osseous or soft tissue lesions CT/Abdomen/Pelvis W IV Cont ONLY IMPRESSION: No acute abnormalities in the abdomen or pelvis. Electronically Signed: Sancho Hopper MD at 23:35 EDT Tel , Service support ,
[2020-10-24] MEDS: Ketorolac 30 MG/ML Syringe IM (22:22)
[2020-10-24 22:35] LABS: Absolute Lymphocyte Count 3.47 X10^3/uL (0.83-4.51); Absolute Neutrophil Count 5.5 X10^3/uL (2.0-7.7); Basophil# 0.06 X10^3/uL; Basophil% 0.6 % (0-1); Eosinophil# 0.28 X10^3/uL; Eosinophils% 2.8 % (0-5); Hematocrit 35.8 % (37-47); Hemoglobin 10.5 g/dL (12.0-15.0); Lymphocyte # 3.47 X10^3/ul (0.83-4.51); Mean Corp Hgb Conc 29.3 g/dL (32-36); Mean Corpuscular Hgb 22.8 pg (27.0-32.0); Mean Corpuscular Volume 77.8 fL (81-99); Mean Platelet Vol. 10.9 fl (6.2-12.0); Monocyte# 0.61 X10^3/uL; Monocyte% 6.2 % (0-10); NRBC Flagged by Analyzer 0 % (0-5); Neutrophil # 5.45 X10^3/uL (2.7-7.7); Platelet Count 349 K/mm3 (150-450); RBC Distribution Width CV 17.9 % (11.6-14.6); RBC Distribution Width SD 50.1 fl (35.1-43.9); White Blood Count 9.9 K/mm3 (4.4-11.0)
[2020-10-24 22:43] LABS: Anion Gap 7 (5-15); BUN 12 mg/dL (7-18); BUN/Creat Ratio 18.2 RATIO (10-20); Calcium,Total 8.5 mg/dL (8.5-10.1); Chloride 107 mmol/L (98-107); Creatinine, Serum 0.66 mg/dL (0.55-1.02); EST Glomerular Filtration Rate 105 mL/min (>60); Est Glom Filt Rate - Afr Amer 127 mL/min (>60); Estimated Creatinine Clearance 84.65 ml/min; Glucose 105 mg/dL (74-106); Sodium Level 140 mmol/L (136-145)
--- NOTE | 2020-10-24 23:03 | ED.RN ---
PTs IV infiltrated in CT. PT refusing a new IV. Dr. Lu was updated and okay to proceed with CT without contrast. [facility] hands assembler will proceed as ordered.
== END 2020-10-25 00:15 | disposition home or self-care (01) ==
PROVIDERS: Emergency Provider Emergency Medicine; PCP Family Medicine
DX: N94.6 Dysmenorrhea, unspecified (principal); K21.9 Gastro-esophageal reflux disease without esophagitis; J45.909 Unspecified asthma, uncomplicated; Z79.899 Other long term (current) drug therapy
CPT/HCPCS: 74177; 80048; 81001; 85025; 96372; 99283; Q9967; A4216

== ENCOUNTER → 2020-11-30 11:39 | Outpatient (CLI) | payer MEDICAID, SELFPAY ==
--- NOTE | 2020-11-30 11:41 | RAD_ITS ---
STUDY: X-RAY - ACUTE ABDOMINAL SERIES REASON FOR EXAM: Female, 40 years old. ABDOMINAL PAIN TECHNIQUE: Single view of the chest. Supine, and erect view(s) of the abdomen were obtained. COMPARISON: 03/03/2017 FINDINGS: The lungs are clear and expanded. Normal size heart. Normal mediastinum and justin. Normal visualized pulmonary arteries. Normal visualized aortic arch and descending thoracic aorta. There is a non-specific bowel gas pattern. The soft tissue structures of the abdomen and pelvis are unremarkable. Normal visualized osseous structures. RAD/Acute Abdomen Inc Chest IMPRESSION: Normal x-ray examination of the chest, abdomen, and pelvis. Electronically Signed: Francisco Javier Piper MD at 9:39 EDT Tel , Service support ,
[2020-11-30 15:04] LABS: Basophil# 0.08 X10^3/uL; Basophil% 0.7 % (0-1); Eosinophil# 0.34 X10^3/uL; Eosinophils% 3.1 % (0-5); Hematocrit 37.6 % (37-47); Hemoglobin 11.2 g/dL (12.0-15.0); Lymphocyte % 27.9 % (19-41); Mean Corp Hgb Conc 29.8 g/dL (32-36); Mean Corpuscular Hgb 22.4 pg (27.0-32.0); Mean Platelet Vol. 11.6 fl (6.2-12.0); Monocyte# 0.56 X10^3/uL; NRBC Flagged by Analyzer 0 % (0-5); Neutrophil % 62.9 % (47-70); Platelet Count 375 K/mm3 (150-450); RBC Distribution Width CV 17.5 % (11.6-14.6); RBC Distribution Width SD 46.5 fl (35.1-43.9); Red Blood Count 5.01 M/mm3 (4.2-5.4); White Blood Count 11.1 K/mm3 (4.4-11.0)
[2020-11-30 15:51] LABS: ALB/GLOB Ratio 0.6 RATIO (0.9-2.4); AST(SGOT) 16 U/L (15-37); Alanine Aminotransfer ALT/SGPT 27 U/L (13-56); Albumin, Serum 3.3 g/dL (3.2-5.0); Alkaline Phosphatase 115 U/L (45-117); Anion Gap 6 (5-15); BUN 13 mg/dL (7-18); BUN/Creat Ratio 17.3 RATIO (10-20); Calcium,Total 9.1 mg/dL (8.5-10.1); Chloride 108 mmol/L (98-107); Creatinine, Serum 0.75 mg/dL (0.55-1.02); EST Glomerular Filtration Rate 91 mL/min (>60); Est Glom Filt Rate - Afr Amer 109 mL/min (>60); Globulin 5.1 g/dL (2.2-4.2); Glucose 91 mg/dL (74-106); Potassium 3.8 mmol/L (3.5-5.1); Protein, Total 8.4 g/dL (6.4-8.2); Sodium Level 140 mmol/L (136-145); Thyroid Stim Hormone (TSH) 3.41 uIU/mL (0.358-3.74)
== END ==
PROVIDERS: PCP Family Medicine; Referring Provider Family Medicine; Visit Provider Family Medicine
DX: R10.9 Unspecified abdominal pain (principal)
CPT/HCPCS: 36415; 74022; 80053; 84443; 85025

== ENCOUNTER → 2020-12-21 09:21 | Outpatient (CLI) | payer MEDICAID, SELFPAY ==
--- NOTE | 2020-12-21 09:35 | RAD_ITS ---
PROCEDURE: Upper GI with Small Bowel Follow Through DATE OF EXAMINATION: 12/21/2020. INDICATION: Female, 40 years old. Gastroesophageal reflux. FLUOROSCOPY TIME (if supplied): (0:52) minutes/seconds. 18 images were obtained. TECHNIQUE: Radiographic and fluoroscopic images of the distal esophagus, stomach, and entire small intestine were obtained following the oral ingestion of barium. COMPARISON: None. FINDINGS: The caster investment casting film of the abdomen demonstrates a normal bowel gas pattern. There are no abnormal calcifications or organomegaly demonstrated. The visualized osseous structures are normal. There is evidence of a small sliding hiatal hernia with gastroesophageal reflux. The remainder of the stomach and duodenum is unremarkable. A single contrast small bowel follow through exam demonstrates the small bowel to have no evidence for stricture, ulceration or mass. The transit time is normal at 30 minutes. RAD/Upper GI/w Small Bowel IMPRESSION: 1. Small sliding hiatal hernia with gastroesophageal reflux. Electronically Signed: Lamin Duvall MD at 11:20 EDT , Service support ,
== END ==
PROVIDERS: PCP Family Medicine; Referring Provider Family Medicine; Visit Provider Family Medicine
DX: R10.9 Unspecified abdominal pain (principal)
CPT/HCPCS: 74246; 74248

== ENCOUNTER → 2021-01-18 12:35 | Outpatient (CLI) | payer MEDICAID, SELFPAY ==
[2021-01-18 15:21] LABS: Follicle Stimulating Hormone 4.4 mIU/mL; Luteinizing Hormone 7.4 mIU/mL; Thyroid Stim Hormone (TSH) 2.87 uIU/mL (0.358-3.74)
== END ==
PROVIDERS: PCP Family Medicine; Referring Provider Family Medicine; Visit Provider Family Medicine
DX: N91.2 Amenorrhea, unspecified (principal)
CPT/HCPCS: 36415; 82627; 82670; 83001; 83002; 84443; 82626

== ENCOUNTER 2021-02-21 14:21 | Outpatient (CLI) | payer MEDICAID, SELFPAY ==
[2021-02-21 15:34] LABS: Hematocrit 39.1 % (37-47); Hemoglobin 11.5 g/dL (12.0-15.0); Mean Corp Hgb Conc 29.4 g/dL (32-36); Mean Corpuscular Volume 74.9 fL (81-99); Mean Platelet Vol. 11.1 fl (6.2-12.0); Platelet Count 342 K/mm3 (150-450); RBC Distribution Width CV 17.1 % (11.6-14.6); RBC Distribution Width SD 45.5 fl (35.1-43.9); Red Blood Count 5.22 M/mm3 (4.2-5.4); White Blood Count 9.6 K/mm3 (4.4-11.0)
[2021-02-21 15:52] LABS: Hemoglobin A1c 5.7 % (3.8-5.6)
[2021-02-21 16:10] LABS: hCG Titer Quant., Serum < 1 mIU/mL (1-3)
[2021-02-21 16:42] LABS: Estradiol 115.3 pg/mL; Follicle Stimulating Hormone 2.7 mIU/mL; Luteinizing Hormone 5.9 mIU/mL; Prolactin 4.3 ng/mL; Thyroid Stim Hormone (TSH) 2.28 uIU/mL (0.358-3.74)
== END 2021-02-21 23:59 | disposition short-term general hospital (02) ==
LOC: WOBLAB 14:22
PROVIDERS: PCP Family Medicine; Visit Provider Obstetrics & Gynecology
DX: N93.9 Abnormal uterine and vaginal bleeding, unspecified (principal)
CPT/HCPCS: 36415; 82670; 83001; 83002; 83036; 84146; 84439; 84443; 84702; 85027

== ENCOUNTER 2021-04-24 12:24 | Outpatient (CLI) | payer MEDICAID, SELFPAY ==
[2021-04-28 13:32] LABS: HPV APTIMA, High Risk Negative (Negative)
== END 2021-04-24 23:59 | disposition home or self-care (01) ==
LOC: LABSPEC 12:24
PROVIDERS: PCP Family Medicine; Visit Provider Obstetrics & Gynecology
DX: Z12.4 Encounter for screening for malignant neoplasm of cervix (principal)
CPT/HCPCS: 87624; 88175; G0145

== ENCOUNTER 2021-05-03 12:14 | Outpatient (CLI) | payer MEDICAID, SELFPAY ==
--- NOTE | 2021-05-03 12:28 | BI_ITS ---
MAMMOGRAPHY - BILATERAL SCREENING 3-D TOMOSYNTHESIS REASON FOR EXAM: Female, 40 years old. SCREENING PERTINENT HISTORY: No significant family history. TECHNIQUE: 2-D mammograms and 3-D Tomosynthesis of the breast (s) were performed. CAD was performed. COMPARISON: 04/15/2020 FINDINGS: The breast composition is composed of scattered fibroglandular density. Scattered benign calcifications are seen. No dense spiculated masses or suspicious microcalcifications are identified. No architectural distortion is identified. There is no skin thickening or retraction. There has been no significant change since the prior study. BI/SCRN MAMM (CAD)W/JEANNIE BILAT IMPRESSION: No mammographic signs of malignancy. Routine yearly mammograms recommended. ASSESSMENT CATEGORY: BIRADS Category 1: Negative. A letter regarding these results will be sent to the patient by the facility within 30 days. FOLLOW UP RECOMMENDATION: Yearly follow up mammogram recommended. (A) Approximately 10% of breast cancers are not detected by mammography. A normal mammogram should not delay biopsy of a clinically suspicious abnormality. Electronically Signed: Francisco Javier Piper MD at 13:50 EDT ,
== END 2021-05-03 23:59 | disposition home or self-care (01) ==
LOC: OPBI 12:27
PROVIDERS: PCP Family Medicine; Referring Provider Obstetrics & Gynecology; Visit Provider Obstetrics & Gynecology
DX: Z12.31 Encounter for screening mammogram for malignant neoplasm of breast (principal)
CPT/HCPCS: 77063; 77067

== ENCOUNTER → 2022-01-16 | Outpatient (CLI) | payer MEDICAID, SELFPAY ==
--- NOTE | 2022-01-16 10:33 | US_ITS ---
STUDY: ABDOMINAL ULTRASOUND - RIGHT UPPER QUADRANT REASON FOR VISIT: Female, 41 years old ABD PAIN TECHNIQUE: Ultrasound evaluation of the right upper quadrant was performed with real-time and static rosas-scale imaging. TECHNICAL QUALITY: Adequate. COMPARISON: None. FINDINGS: Liver: The liver measures 15.4 cm. There is increased echogenicity consistent with fatty infiltration. The bile ducts are within normal limits. There is hepatic color flow. The direction of portal flow is hepatopetal. There is no demonstrated mass lesion. Gallbladder: Normal distended gallbladder. The gallbladder wall measures 2.0 mm. There is a negative sonographic Lopez''s sign. There is no pericholecystic fluid. There are no gallstones. Common Bile Duct (C.B.D.): The common bile duct measures 3.6 mm. Pancreas: There is nonvisualization of the pancreas due to overlying bowel gas. Right Kidney: Normal size of the right kidney. The right kidney measures 9.5 cm x 4.4 cm x 4.8 cm. Normal renal cortex. The right cortex measures 1.9 cm. There is a 2 cm x 1.9 cm x 2 cm right renal cyst. There is no right hydronephrosis. US/Abdomen Limited IMPRESSION: Diffuse fatty infiltration of the liver. Electronically Signed: Lamin Duvall MD at 15:17 EST ,
== END | disposition home or self-care (01) ==
PROVIDERS: PCP Family Medicine; Visit Provider Family Medicine
DX: R10.9 Unspecified abdominal pain (principal)
CPT/HCPCS: 76705

== ENCOUNTER → 2022-02-26 | Outpatient (CLI) | payer MEDICAID, SELFPAY ==
[2022-02-26 11:24] LABS: Free T3 2.6 pg/mL (2.18-3.98); T4 Total, Thyroxin 8.1 ug/dL (4.8-13.9); Thyroid Stim Hormone (TSH) 2.71 uIU/mL (0.358-3.74)
== END | disposition home or self-care (01) ==
LOC: MFPLAB 09:43
PROVIDERS: PCP Family Medicine; Visit Provider Nurse Practitioner Family
DX: R53.83 Other fatigue (principal)
CPT/HCPCS: 36415; 82306; 84436; 84443; 84481

== ENCOUNTER → 2022-06-22 | Outpatient (CLI) | payer MEDICAID, SELFPAY ==
--- NOTE | 2022-06-22 10:31 | BI_ITS ---
MAMMOGRAPHY - BILATERAL SCREENING REASON FOR EXAM: Female, 41 years old. Routine annual screening examination. PERTINENT HISTORY: Non-contributory. History of prior bilateral breast reduction surgery. TECHNIQUE: Digital bilateral breast jeannie (3D mammographic acquisition) in the CC and MLO projections. 2-D mediolateral oblique (MLO) and craniocaudad (CC) views of both breasts were obtained. CAD: Full Field Digital Mammography with Computer Added Detection was performed. COMPARISON: Comparison is made with prior study of May 03, 2021. FINDINGS: Breast Composition: There are scattered areas of fibroglandular density. There are no dominant masses or suspicious calcifications. No other significant abnormalities are identified. There has been no significant change since the prior study. BI/SCRN MAMM (CAD)W/JEANNIE BILAT IMPRESSION: Stable bilateral screening mammogram. Yearly follow-up mammogram recommended. (A) ASSESSMENT CATEGORY: BIRADS Category 1: Negative. A letter regarding these results will be sent to the patient by the facility within 30 days. Approximately 10% of breast cancers are not detected by mammography. A normal mammogram should not delay biopsy of a clinically suspicious abnormality. [id number] Electronically Signed: Lamin Duvall MD at 11:36 EDT ,
== END | disposition home or self-care (01) ==
PROVIDERS: PCP Family Medicine; Referring Provider Obstetrics & Gynecology; Visit Provider Obstetrics & Gynecology
DX: Z12.31 Encounter for screening mammogram for malignant neoplasm of breast (principal)
CPT/HCPCS: 77063; 77067

== ENCOUNTER → 2022-07-12 | Outpatient (CLI) | payer MEDICAID, SELFPAY ==
[2022-07-14 05:07] LABS: H. Pylori Antibody (IgG) 0.21 (0.00-0.79)
== END | disposition home or self-care (01) ==
LOC: MFPLAB 15:24
PROVIDERS: PCP Family Medicine; Visit Provider Family Medicine
DX: R10.13 Epigastric pain (principal)
CPT/HCPCS: 36415; 86677

== ENCOUNTER 2022-08-20 08:30 | Day surgery (SDC) | payer MEDICAID, SELFPAY ==
[2022-08-20] VITALS (8 sets, daily range): BP systolic 98–134; BP diastolic 56–77; PULSE 67–92; RESP 18; TEMP 36.1–36.6; O2SAT 96–100; BMI 35.9
--- NOTE | 2022-08-20 | GASB_PTH ---
PATIENT: PAMELA SMITH LOC: [facility] U#:[id number] AGE/SX: 41/F ROOM: RE08/20/[address]: Dr. Masood Banerjee MD : 1980 BED: DIS: 08/20/2022 SPEC #: [id number] RECD: 08/20/22 12:59 STATUS: FABRICE LEODAN #: [id number] GONZÁLEZ: 08/20/22 00:[address]: Masood Banerjee DEPT: SURGICAL PATHOLOGY RECD BY: Roman Judge ENTERED: 08/20/22 13:00 SP TYPE: Gastric Bx OTHR DR: Dr. Sancho Byrne MD Tissues: A - Gastric mucous membrane B - Esophageal mucous membrane Procedures: Surgery Specimen Level IV HEADER OPERATION[place] [place] with [place] PRE-OP DIAGNOSIS: Dysphagia TISSUE SUBMITTED: A - Antrum for H. pylori and histology, B - Mid esophagus MICROSCOPIC DIAGNOSIS A. Gastric antrum, biopsy: Mild chronic gastritis. See comment. B. Mid esophagus, biopsy: No pathologic change. AM:mitchell 08/22/2022 COMMENT A. The results of immunohistochemistry for Helicobacter pylori will be reported separately ([id number]). MICROSCOPIC DESCRIPTION Slides are reviewed. GROSS DESCRIPTION A - Received in fixative is one container labeled with the patient's name and designated antrum biopsy. The specimen consists of two irregular fragments of light rosenberg soft tissue that in aggregate measure 0.4 x 0.2 x 0.1 cm. The specimen is totally submitted in one cassette. B - Received in fixative is one container labeled with the patient's name and designated mid esophagus. The specimen consists of one irregular fragment of light rosenberg soft tissue that measures 0.3 x 0.3 x 0.1 cm. The specimen is totally submitted in one cassette. / BLAKE:mitchell 08/20/2022 TC:5 CPT: 30326 x2
[2022-08-20] MEDS: Lactated Ringers 1,000 ML 15 ML IV (08:55)
--- NOTE | 2022-08-20 09:27 | HP.PCM_ITS ---
History and Physical Date of Admission: 08/20/22 Intake Vital Signs 10/24/2118:52 Height 5 ft 1 in Intake Visit Reasons: SEVERE GERD/HIATAL HERNIA Allergies No Known Allergies Allergy (Verified 10/24/20 19:53) [facility] Medical History Arthritis Asthma Chronic cough Gastric reflux Non-smoker Shortness of breath on exertion Surgical History History of bilateral breast reduction surgery History of History of ethmoidectomy History of hysterectomy Social History Smoking Status: Never smoker HPI HPI HPI: Patient is a 41-year-old female here with dysphagia and GERD. She reports she has had GERD long-term and has been on as needed omeprazole. She reports that starting last week she started to have dysphagia. She says this happens with liquids and solids. She says she feels like food sticking at the bottom of her esophagus in her mid chest. She is also complaining of epigastric pain. She says it is little better after starting Carafate and taking her omeprazole daily. ROS General General: No weight change, appetite, fatigue, colon cancer, breast cancer or weakness HEENT HEENT: Yes difficulty swallowing; No eye injury, eye surgery, swollen glands or hoarseness Endo Endocrine: No thyroid disease, diabetes mellitus, thyroid cancer, Hair loss, heat intolerance or cold intolerance Skin Skin: No rash or changing moles Breast Breast: No left breast lump, right breast lump, nipple discharge, breast pain, abnormal mammogram, abnormal US or breast enlargement Musc Musculoskeletal: Yes rheumatoid arthritis; No back problems, arthritis, gout or joint pain Cardio Cardiovascular: No murmur, pacemaker, heart disease, atrial fibrillation, high blood pressure, heart attack, heart stent, palpitations, shortness of breat with exertion or chest pain Psych Psychiatric: No depression, anxiety or hearing voices Resp Respiratory: No shortness of breath, No sleep apnea, No cough, No COPD, Yes asthma, No emphysema and No wheezing Gastro Gastrointestinal: No abdominal pain, No nausea or vomiting, No diarrhea, No constipation, No blood in stool, No acid reflux, No hemorrhoids, No ulcers, No gallbladder problem and No black,tarry stools Juan C Hematologic: No blood thinners, No blood disorders, No bleeding, No anemia and No blood clots Neuro Neurologic: No system reviewed and no additional complaints, except as documented, No as per HPI, No abnormal gait, No abnormal hearing, No abnormal movements, No abnormal speech, No behavioral changes, No burning sensations, No confusion, No convulsions, No disequilibrium, No dizziness, No localized weakness, No frequent falls, No headache(s), No lack of coordination, No loss of vision, No memory loss, No numbness, No other visual disturbances, No radicular pain, No restless legs, No sensory deficit, No syncope, No tingling, No tremor(s), No weakness and No other Exam Const General: cooperative Orientation: alert and oriented x3 HENSC Head: normal to inspection Neck Neck: normal visual inspection and full ROM Chest Chest palpation & inspection: normal inspection of the chest Resp Effort & Inspection: normal respiratory effort Auscultation: clear to auscultation bilaterally Cardio Rate: regular rate Rhythm: regular rhythm GI Inspection: non-distended Palpation: soft and nontender Skin General: no rashes or lesions noted Neuro General: patient alert and patient oriented x3 Extrem General: full ROM Psych Appearance: grossly normal Mental Status: mental status grossly normal Assessment and Plan Assessment and Plan (1) Dysphagia: Status: Acute Qualifiers: Dysphagia type: esophageal phase Qualified Code(s): R13.19 - Other dysphagia Plan: The patient is having esophageal dysphagia. She had an esophagogram a few years ago which showed sliding hiatal hernia and reflux. She is experiencing some relief of her reflux and pain with the Carafate and taking her omeprazole daily I encouraged her to continue both until EGD. I plan on performing EGD and I discussed dilation of possible stenosis with her and I discussed possible biopsy. We discussed the increased risk of bleeding or perforation with either. I explained endoscopy in detail to the patient. I explained the risks including but not limited to stroke or heart attack with anesthesia, perforation of the GI tract, bleeding, infection. I explained that any of these could necessitate further emergency surgery. The patient understands and all questions were answered sufficiently. The patient wishes to proceed with procedure. Masood Banerjee MD Pager: [facility] [address] [place] [address], [address] [place] [phone] Office: I have examined the patient and the H&P has been reviewed. There are no clinical changes since date of exam.
--- NOTE | 2022-08-20 09:30 | IMM_PTH ---
PATIENT: PAMELA SMITH LOC: [facility] U#:[id number] AGE/SX: 41/F ROOM: RE08/20/[address]: Dr. Masood Banerjee MD : 1980 BED: DIS: 08/20/2022 SPEC #: [id number] RECD: 08/20/22 13:50 STATUS: FABRICE RESamm #: [id number] GONZÁLEZ: 08/20/22 09:[address]: Masood Banerjee DEPT: IMMUNOHISTOCHEMISTRY RECD BY: Nikky Kenny ENTERED: 08/20/22 13:51 SP TYPE: IMMUNO OTHR DR: Dr. Sancho Byrne MD Tissues: A - Stomach, NOS Procedures: H Pylori (initial) PHYSICIAN & INSTITUTION [place] [address] SPECIMEN INFORMATION: Tissue Source: A - Antrum Clinical Info: Dysphagia Specimen Number: [id number] CPT code: 31993 METHODOLOGY: Deparaffinized sections of prefer/formalin-fixed tissue or PAP/DQ stained slides are incubated with monoclonal/polyclonal antibodies/oligonucleotide probes. Localization is made via biotin free immunoperoxidase method. Appropriate controls are performed and reacted as expected. Results on target cell population are indicated in the following table: RESULTS: ANTIBODY / CLONE RESULT Block A H Pylori (polyclonal) negative These tests were developed and their performance characteristics determined by [facility]. They may not have been cleared or approved by the U.S. Food and Drug Administration. The FDA has determined that such clearance or approval is not necessary. The above immunohistochemical/dualISH markers are ordered and reviewed by the Pathologist. INTERPRETATION: A. Antrum, biopsy: Negative for Helicobacter pylori organisms. AM:mitcehll 08/22/2022
--- NOTE | 2022-08-20 09:59 | OP.EGD_ITS ---
Patient Name: Darinel Corral Procedure Date: 08/20/2022 9:37 AM Date of : 1980 Age: 41 Procedure: Upper GI endoscopy Indications: Epigastric abdominal pain, Dysphagia Providers: Masood Banerjee MD Medicines: Monitored Anesthesia Care Patient Profile: This is a 41 year old female. Refer to note in patient chart for documentation of history and physical. Complications: No immediate complications. Procedure: Pre-Anesthesia Assessment: - Prior to the procedure, a History and Physical was performed, and patient medications and allergies were reviewed. The patient's tolerance of previous anesthesia was also reviewed. The risks and benefits of the procedure and the sedation options and risks were discussed with the patient. All questions were answered, and informed consent was obtained. Prior Anticoagulants: The patient has taken no previous anticoagulant or antiplatelet agents. After reviewing the risks and benefits, the patient was deemed in satisfactory condition to undergo the procedure. After obtaining informed consent, the endoscope was passed under direct vision. Throughout the procedure, the patient's blood pressure, pulse, and oxygen saturations were monitored continuously. The gastroscope was introduced through the mouth, and advanced to the third part of duodenum. The upper GI endoscopy was accomplished without difficulty. The patient tolerated the procedure well. Scope In: 9:48:47 AM Scope Out: 9:52:25 AM Total Procedure Duration Time 0 hours 3 minutes 38 seconds Findings: The esophagus was normal. The stomach was normal. The examined duodenum was normal. Biopsies were taken with a cold forceps in the gastric antrum for Helicobacter pylori testing. Biopsies were taken with a cold forceps in the mid esophagus for histology. Impression: - Normal esophagus. - Normal stomach. - Normal examined duodenum. - Biopsies were taken with a cold forceps for Helicobacter pylori testing. - Biopsies were taken with a cold forceps for histology in the mid esophagus. Recommendation: - Discharge patient to home. - Resume previous diet. - Continue present medications. - Await pathology results. Procedure Code(s): --- Professional --- 10561, Esophagogastroduodenoscopy, flexible, transoral; with biopsy, single or multiple Diagnosis Code(s): --- Professional --- R10.13, Epigastric pain R13.10, Dysphagia, unspecified CPT copyright 2017 [employer]. All rights reserved. The codes documented in this report are preliminary and upon remote inpatient coder review may be revised to meet current compliance requirements. Masood Banerjee MD 08/20/2022 9:59:07 AM This report has been signed electronically. Number of Addenda: 0 Note Initiated On: 08/20/2022 9:37 AM
--- NOTE | 2022-08-20 10:00 | OP.CCLET_ITS ---
08/20/2022 Lobo Byrne [address] [place] [address] Re : Upper GI endoscopy procedure for Darinel Corral Dear Dr. Byrne This procedure was performed on Saturday, August 20, 2022. My impressions and recommendations are as follows: Impressions : - Normal esophagus. - Normal stomach. - Normal examined duodenum. - Biopsies were taken with a cold forceps for Helicobacter pylori testing. - Biopsies were taken with a cold forceps for histology in the mid esophagus. Recommendations : - Discharge patient to home. - Resume previous diet. - Continue present medications. - Await pathology results. My findings are described in the full procedure note, which is enclosed. If I can be of further assistance, please feel free to contact me at Doctor phone number(s): , Work: . Sincerely, Masood Banerjee MD 08/20/2022 9:59:07 AM This report has been signed electronically.
== END 2022-08-20 10:46 | disposition home or self-care (01) ==
LOC: SDC 08:35 → AC 08:35
PROVIDERS: PCP Family Medicine; Referring Provider Family Medicine; Visit Provider Surgery
PROC: 0DJ08ZZ Inspection of Upper Intestinal Tract, Via Natural or Artificial Opening Endoscopic (ICD-10-PCS; CPT 43235; principal; 2022-08-20 09:25)
DX: K29.50 Unspecified chronic gastritis without bleeding (principal); R13.10 Dysphagia, unspecified; R10.13 Epigastric pain; K21.9 Gastro-esophageal reflux disease without esophagitis; J45.909 Unspecified asthma, uncomplicated; Z79.899 Other long term (current) drug therapy
CPT/HCPCS: 43239; 88305; 88342; J7120; J2405

== ENCOUNTER → 2022-10-17 | Outpatient (CLI) | payer MEDICAID, SELFPAY ==
[2022-10-17 11:02] LABS: ALB/GLOB Ratio 0.7 RATIO (0.9-2.4); AST(SGOT) 20 U/L (15-37); Alanine Aminotransfer ALT/SGPT 30 U/L (13-56); Albumin, Serum 3.4 g/dL (3.2-5.0); Alkaline Phosphatase 109 U/L (45-117); Anion Gap 4 (5-15); BUN 11 mg/dL (7-18); Bilirubin, Direct 0.13 mg/dL (0.00-0.30); Chloride 109 mmol/L (98-107); Cholesterol 171 mg/dL (200); Creatinine, Serum 0.69 mg/dL (0.55-1.02); EST Glomerular Filtration Rate 99 mL/min (>60); Est Glom Filt Rate - Afr Amer 120 mL/min (>60); Globulin 4.6 g/dL (2.2-4.2); Glucose 104 mg/dL (74-106); High Density Lipoprotein 51 mg/dL; Potassium 4.4 mmol/L (3.5-5.1); Sodium Level 139 mmol/L (136-145); Triglycerides 91 mg/dL; Very Low Density Lipoprotein 18 mg/dL (5-40)
[2022-10-17 11:40] LABS: Hemoglobin A1c 5.4 % (3.8-5.6)
[2022-10-19 13:07] LABS: Vitamin D 1,25-Dihydroxy 55.8 pg/mL (24.8-81.5)
== END | disposition home or self-care (01) ==
LOC: MFPLAB 09:12
PROVIDERS: PCP Family Medicine; Visit Provider Family Medicine
DX: E55.9 Vitamin D deficiency, unspecified (principal); K76.0 Fatty (change of) liver, not elsewhere classified; L83 Acanthosis nigricans; Z13.220 Encounter for screening for lipoid disorders
CPT/HCPCS: 36415; 80053; 80061; 82248; 82652; 83036

== ENCOUNTER → 2023-01-02 | Outpatient (CLI) | payer MEDICAID, SELFPAY ==
--- NOTE | 2023-01-02 11:57 | RAD_ITS ---
EXAM: XR ABDOMEN, 2 VIEWS CLINICAL INDICATION: bloating. TECHNIQUE: Frontal view of the abdomen/pelvis with upright view of the abdomen. COMPARISON: No relevant prior studies available. FINDINGS: LOWER THORAX: No acute pathology. INTRAPERITONEAL SPACE: No free air. GASTROINTESTINAL TRACT: Unremarkable. Non-obstructive. No bowel or stomach distention. ORGANS: Unremarkable as visualized. No organomegaly. No abnormal calcifications. BONES/JOINTS: No acute pathology. SOFT TISSUES: No acute pathology. RAD/Abd Inc Decub and/or Erect IMPRESSION: Unremarkable abdominal series. Electronically Signed: Eduardo Gordon MD at 0:28 EST ,
[2023-01-02 15:17] LABS: Absolute Lymphocyte Count 2.74 X10^3/uL (0.83-4.51); Absolute Neutrophil Count 6.7 X10^3/uL (2.0-7.7); Basophil# 0.06 X10^3/uL; Basophil% 0.6 % (0-1); Eosinophil# 0.21 X10^3/uL; Eosinophils% 2.1 % (0-5); Hematocrit 38.9 % (37-47); Hemoglobin 11.6 g/dL (12.0-15.0); Lymphocyte # 2.74 X10^3/ul (0.83-4.51); Lymphocyte % 27.2 % (19-41); Mean Corp Hgb Conc 29.8 g/dL (32-36); Mean Corpuscular Volume 80.4 fL (81-99); Mean Platelet Vol. 11.3 fl (6.2-12.0); Monocyte# 0.39 X10^3/uL; Monocyte% 3.9 % (0-10); NRBC Flagged by Analyzer 0 % (0-5); Neutrophil # 6.66 X10^3/uL (2.7-7.7); Neutrophil % 65.9 % (47-70); Platelet Count 365 K/mm3 (150-450); RBC Distribution Width CV 16.9 % (11.6-14.6); RBC Distribution Width SD 48.9 fl (35.1-43.9); Red Blood Count 4.84 M/mm3 (4.2-5.4); White Blood Count 10.1 K/mm3 (4.4-11.0)
[2023-01-02 15:35] LABS: Vitamin B12 442 pg/mL (211-911); Vitamin D,25 Hydroxy 12.8 ng/mL
[2023-01-02 15:36] LABS: Erythrocyte Sedimentation Rate 30 mm/hr (0-30)
[2023-01-02 15:45] LABS: ALB/GLOB Ratio 0.8 RATIO (0.9-2.4); AST(SGOT) 25 U/L (15-37); Alanine Aminotransfer ALT/SGPT 36 U/L (13-56); Albumin, Serum 3.6 g/dL (3.2-5.0); Alkaline Phosphatase 104 U/L (45-117); Anion Gap 4 (5-15); BUN 10 mg/dL (7-18); BUN/Creat Ratio 12.8 RATIO (10-20); Calcium,Total 9.2 mg/dL (8.5-10.1); Chloride 107 mmol/L (98-107); Creatinine, Serum 0.78 mg/dL (0.55-1.02); EST Glomerular Filtration Rate 86 mL/min (>60); Est Glom Filt Rate - Afr Amer 104 mL/min (>60); Ferritin 20 ng/mL (8-252); GGTP 47 U/L (5-55); Globulin 4.8 g/dL (2.2-4.2); Glucose 95 mg/dL (74-106); Iron 45 ug/dL (50-170); Potassium 3.8 mmol/L (3.5-5.1); Protein, Total 8.4 g/dL (6.4-8.2); Sodium Level 138 mmol/L (136-145); Thyroid Stim Hormone (TSH) 2.38 uIU/mL (0.358-3.74)
[2023-01-04 14:09] LABS: Endomysial Antibody IgA Negative (Negative); HEPATITIS B SURFACE AG Negative (Negative); Hep C Antibodies Non Reactive (Non Reactive); Hepatitis A IgM Antibody Negative (Negative); Hepatitis B Core AB IgM Negative (Negative); Immunoglobulin A 303 mg/dL (87-352); t-Transglutaminase IgA <2 U/mL (0-3)
[2023-01-06 12:07] LABS: Beef <0.10 kU/L (Class 0); Chocolate <0.10 kU/L (Class 0); Codfish <0.10 kU/L (Class 0); Corn <0.10 kU/L (Class 0); Egg, Whole <0.10 kU/L (Class 0); Milk (Cow) <0.10 kU/L (Class 0); Mussels <0.10 kU/L (Class 0); Peanut <0.10 kU/L (Class 0); Pork <0.10 kU/L (Class 0); Salmon <0.10 kU/L (Class 0); Shrimp <0.10 kU/L (Class 0); Soybean <0.10 kU/L (Class 0); Tuna <0.10 kU/L (Class 0); Wheat <0.10 kU/L (Class 0)
[2023-01-09 15:08] LABS: PROEL- A/G Ratio 0.9 (0.7-1.7); PROEL- Albumin 3.6 g/dL (2.9-4.4); PROEL- Alpha-1 Globulin 0.2 g/dL (0.0-0.4); PROEL- Alpha-2 Globulin 0.9 g/dL (0.4-1.0); PROEL- Beta Globulin 1.3 g/dL (0.7-1.3); PROEL- Gamma Globulin 1.7 g/dL (0.4-1.8); PROEL- Globulin, Total 4.2 g/dL (2.2-3.9); PROEL- TOTAL PROTEIN 7.8 g/dL (6.0-8.5); PROEL-M-Spike Not Observed g/dL (Not Observed)
== END | disposition home or self-care (01) ==
LOC: MTRAD 11:56
PROVIDERS: PCP Family Medicine; Referring Provider Family Medicine; Visit Provider Family Medicine
DX: R10.13 Epigastric pain (principal); R53.83 Other fatigue; K76.0 Fatty (change of) liver, not elsewhere classified
CPT/HCPCS: 36415; 74019; 80053; 80074; 82306; 82533; 82607; 82728; 82784; 82977; 83516; 83540; 84165; 84443; 85025; 85652; 86003; 86005; 86255

== ENCOUNTER → 2023-04-02 | Outpatient (CLI) | payer MEDICAID, SELFPAY ==
[2023-04-02 17:48] LABS: Absolute Lymphocyte Count 3.14 X10^3/uL (0.83-4.51); Absolute Neutrophil Count 6.3 X10^3/uL (2.0-7.7); Basophil# 0.07 X10^3/uL; Basophil% 0.7 % (0-1); Eosinophil# 0.36 X10^3/uL; Eosinophils% 3.5 % (0-5); Hematocrit 37.9 % (37-47); Hemoglobin 11.7 g/dL (12.0-15.0); Lymphocyte # 3.14 X10^3/ul (0.83-4.51); Lymphocyte % 30.2 % (19-41); Mean Corp Hgb Conc 30.9 g/dL (32-36); Mean Corpuscular Hgb 24.1 pg (27.0-32.0); Mean Platelet Vol. 10.9 fl (6.2-12.0); Monocyte# 0.45 X10^3/uL; Monocyte% 4.3 % (0-10); NRBC Flagged by Analyzer 0 % (0-5); Neutrophil % 60.4 % (47-70); Platelet Count 326 K/mm3 (150-450); RBC Distribution Width CV 16.7 % (11.6-14.6); RBC Distribution Width SD 47.5 fl (35.1-43.9); RET-HE 26.3 pg (30-35); Red Blood Count 4.86 M/mm3 (4.2-5.4); Reticulocyte Count 1.77 % (0.5-1.5); White Blood Count 10.4 K/mm3 (4.4-11.0)
[2023-04-02 17:51] LABS: Erythrocyte Sedimentation Rate 27 mm/hr (0-30)
[2023-04-02 18:03] LABS: Vitamin B12 377 pg/mL (211-911); Vitamin D,25 Hydroxy 23.2 ng/mL
[2023-04-02 18:22] LABS: ALB/GLOB Ratio 0.7 RATIO (0.9-2.4); AST(SGOT) 23 U/L (15-37); Alanine Aminotransfer ALT/SGPT 32 U/L (13-56); Albumin, Serum 3.5 g/dL (3.2-5.0); Alkaline Phosphatase 102 U/L (45-117); Anion Gap 6 (5-15); BUN 12 mg/dL (7-18); BUN/Creat Ratio 14.3 RATIO (10-20); Chloride 109 mmol/L (98-107); Creatinine, Serum 0.84 mg/dL (0.55-1.02); EST Glomerular Filtration Rate 79 mL/min (>60); Est Glom Filt Rate - Afr Amer 95 mL/min (>60); Ferritin 18 ng/mL (8-252); Free T3 2.5 pg/mL (2.18-3.98); Globulin 4.8 g/dL (2.2-4.2); Glucose 113 mg/dL (74-106); Iron 29 ug/dL (50-170); Iron Binding Capacity,Total 340 ug/dL (250-450); Potassium 3.9 mmol/L (3.5-5.1); Protein, Total 8.3 g/dL (6.4-8.2); Rheumatoid Factor < 10.0 IU/mL (<15); Sodium Level 141 mmol/L (136-145); T4 Free Direct 0.99 ng/dL (0.76-1.46); Thyroid Stim Hormone (TSH) 2.48 uIU/mL (0.358-3.74)
--- OUTSIDE RECORDS SUMMARY | 2023-04-02 19:53 | XMS RPT_ITS | CCD ---
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 Name Role Phone Unavailable Primary Care Physician Angelita Kim MD Primary Care Provider Angelita Nunez MD Primary Care Provider ANGELITA NUNEZ Primary Care UnavailANGELITA Burgos Primary Care UnavailANGELITA Burgos Primary Care UnavailJAIME Swift DO Attending MECHE Musa Referring Unavailable ANGELITA NUNEZ Primary Care Unavailabl e Medications Current Medications Medication Drug Class(es) Dates Sig (Normalized) Sig (Original) 120 actuat budesonide 0.08 mg/actuat / formoterol fumarate 0.0045 mg/actuat metered dose inhaler (5 sources) Corticosteroid, beta2-Adrenergic Agonist Start: 05-20-2021 Budesonide-Formote rol Fumarate (SYMBICORT1 AER) 1 AER AER Active 2 INHALATION INH EVERY 12 HOURS 03 19May 20, 2021 2:39pm Completed/Discontinued Medications Medication Drug Class(es) Dates Sig (Normalized) Sig (Original) albuterol 0.83 mg/ml inhalation solution (3 sources) beta2-Adrenergic Agonist Start: 07-17-2022 take 2.5 mg by inhalation every four hours as needed albuterol (PROVENTIL) 2.5 mg /3 mL (0.083 %) nebulizer solution Use 3 mL via nebulizer every 4 hours as needed for wheezing/shortnes s of breath. Use over 5-15minutes. 75 mL 0 07/17/2022 Active Problems Active Problems Problem Classification Problem Date Documented Date Episodic/Chronic Asthma (4 sources) Uncomplicated severe persistent asthma; Translations: [Severe persistent asthma, uncomplicated] 06-25-2017 Chronic Esophageal disorders (1 source) Esophageal disorders; Translations: [Gastroesophageal reflux disease with esophagitis without hemorrhage] Onset: 07-10-2022 Osteoarthritis (4 sources) Arthritis; Translations: [Unspecified osteoarthritis, unspecified site] Onset: 11-28-2020 Chronic Other nutritional; endocrine; and metabolic disorders (3 sources) Obese class II; Translations: [Obesity, unspecified] Onset: 06-27-2017 06-27-2017 Chronic Thyroid disorders (3 sources) Acquired hypothyroidism; Translations: [Hypothyroidism, unspecified] Onset: 04-04-2017 04-04-2017 Chronic Past or Other Problems Problem Classification Problem Date Documented Da te Episodic/Chronic Nonspecific chest pain (1 source) Chest pain, unspecified; Translations: [Chest pain, unspecified type] Onset: 07-10-2022 Episodic Other inflammatory condition of skin (3 sources) Itching of skin; Translations: [Pruritus, unspecified] Onset: 06-27-2017 06-27-2017 Episodic Other lower respiratory disease (1 source) Wheezing; Translations: [Wheezing] Onset: 07-17-2022 Episodic Results Test Name Value Interpretation Reference Range Facil ity Vital Signs Date Time Vital Sign Value Performing Clinician Facility 07-17-2022 13:13-0400 Body temperature 98.91 [degF] Meche Athy PA-C Work Phone: [facility] 07-17-2022 13:13-0400 Body weight 85.73 kg Meche Athy PA-C Work Phone: [facility] 07-17-2022 13:13-0400 Diastolic blood pressure 80 mm[Hg] Meche Athy PA-C Work Phone: [facility] 07-17-2022 13:13-0400 Heart rate 86 /min Meche Athy PA-C Work Phone: [facility] 07-17-2022 13:13-0400 Respiratory rate 16 /min Meche Athy PA-C Work Phone: [facility] 07-17-2022 13:13-0400 SaO2% (BldA) [Mass fraction] 100 % Meche Athy PA-C Work Phone: [facility] 07-17-2022 13:13-0400 Systolic blood pressure 122 mm[Hg] Meche Rankin PA-C Work Phone: [facility] 07-31-2021 09:29-0400 Body temperature 98.2 [degF] Sanya Wilson MD Work Phone: [facility] 07-31-2021 09:29-0400 Body weight 84.82 kg Sanya Wilson MD Work Phone: [facility] 07-31-2021 09:29-0400 Diastolic blood pressure 72 mm[Hg] Sanya Wilson MD Work Phone: [facility] 07-31-2021 09:29-0400 Heart rate 70 /min Sanya Wilson MD Work Phone: [facility] 07-31-2021 09:29-0400 Systolic blood pressure 106 mm[Hg] Sanya Wilson MD Work Phone: [facility] 05-20-2021 14:10-0400 Body height 154.94 cm [employer] Work Phone: 05-20-2021 14:10-0400 Body mass index (BMI) [Ratio] 34.6 kg/m2 [employer] Work Phone: 05-20-2021 14:10-0400 Body temperature 98.6 [degF] [employer] Work Phone: 05-20-2021 14:10-0400 Body weight 83.18 kg [employer] Work Phone: 05-20-2021 14:10-0400 Diastolic blood pressure 79 mm[Hg] [employer] Work Phone: 05-20-2021 14:10-0400 Heart rate 82 /min [employer] Work Phone: 05-20-2021 14:10-0400 Respiratory rate 16 /min [employer] Work Phone: 05-20-2021 14:10-0400 SaO2% (BldA) [Mass fraction] 98 % [employer] Work Phone: 05-20-2021 14:10-0400 Systolic blood pressure 121 mm[Hg] [employer] Work Phone: 10-29-2020 12:01-0400 Body temperature 97.4 [degF] [employer] Work Phone: 10-29-2020 12:01-0400 Diastolic blood pressure 72 mm[Hg] [employer] Work Phone: 10-29-2020 12:01-0400 Heart rate 78 /min [employer] Work Phone: 10-29-2020 12:01-0400 Respiratory rate 20 /min [employer] Work Phone: 10-29-2020 12:01-0400 SaO2% (BldA) [Mass fraction] 98 % [employer] Work Phone: 10-29-2020 12:01-0400 Systolic blood pressure 138 mm[Hg] [employer] Work Phone: Encounters Encounter Date Encounter Type Care Provider Facility Start: 11-26-2022 End: 11-26-2022 [facility] Facility:[facility] Start: 07-17-2022 End: 07-17-2022 [facility] Facility:[facility] Start: 07-17-2022 End: 07-17-2022 Patient encounter procedure Meche Rankin PA-C Work Phone: [facility] Procedures Date Procedure Procedure Detail Performing Clinician Start: 04-15-2020 Mammography Sanya Wilson MD Work Phone: Start: 04-04-2017 Adult depression scr eening assessment Sanya Wilson MD Work Phone: Plan of Treatment Date Care Activity Detail Author Start: 10-15-2044 PNEUMOCOCCAL (3 - PPSV23 if available, else PCV20) PNEUMOCOCCAL (3 - PPSV23 if available, else PCV20) [facility] Start: 10-15-2044 PNEUMOCOCCAL (3 - PPSV23 or PCV20) PNEUMOCOCCAL (3 - PPSV23 or PCV20) [facility] Start: 01-14-2025 HPV TESTING HPV TESTING [facility] Start: 01-14-2025 PAP TESTING PAP TESTING [facility] Start: 10-19-2022 Influenza vaccination INFLUENZA (Season Ended) [facility] janet Start: 02-18-2022 DEPRESSION ASSESSMENT DEPRESSION ASSESSMENT [facility] Start: 10-19-2021 Influenza vaccination INFLUENZA (Season Ended) [facility] janet Start: 07-31-2021 End: 09-30-2021 25-hydroxyvitamin D3 [Mass/volume] in Serum or Plasma [facility] Work Phone: Immunizations Immunization Date Immunization Notes Care Provider Fa cili 08-05-2020 COVID-19 vaccine, ag e 12+ yr (PFIZER-BIONTECH - PURPLE TOP) Sanya Wilson MD Work Phone: [facility] Work Phone: 07-09-2020 COVID-19 vaccine, ag e 12+ yr (PFIZER-BIONTECH - PURPLE TOP) Sanya Wilson MD Work Phone: [facility] Work Phone: 04-15-2020 Human Papillomavirus 9-valent vaccine Sanya Wilson MD Work Phone: [facility] Work Phone: 11-23-2019 Human Papillomavirus 9-valent vaccine Sanya Wilson MD Work Phone: [facility] Work Phone: 09-21-2019 Human Papillomavirus 9-valent vaccine Sanya Wilson MD Work Phone: [facility] 12-29-2018 influenza, injectabl e, quadrivalent, contains preservative Sanya Wilson MD Work Phone: [facility] Work Phone: 12-29-2018 pneumococcal conjuga te vaccine, 13 valent Sanya Wilson MD Work Phone: [facility] Work Phone: 12-17-2017 influenza, seasonal, injectable Sanya Wilson MD Work Phone: [facility] Work Phone: 06-27-2017 pneumococcal polysaccharide vaccine, 23 valent Sanya Wilson MD Work Phone: [facility] Work Phone: Payers Date Payer Category Payer Medicaid [id number] 2021 Medicaid [id number] 2020 Self-pay SELF-PAY [id number] 2017 Medicaid [facility] MEDICAID [employer] MEDICAID [id number] 2017-Present [phone] [address] [place] [address] Medicaid [id number] Social History Date Type Detail Facility Start: 10-29-2020 End: 05-20-2021 Tobacco smoking status SDIS Unknown if ever smoked [employer] Work Phone: Start: 10-29-2020 DENIES Susan [facility] [employer] Work Phone: Start: 1980 [facility] Work Phone: Start: 04-04-2017 End: 07-17-2022 Tobacco smoking status NHIS Never smoked tobacco [facility] Start: 04-04-2017 End: 07-17-2022 Tobacco use and exposure Smokeless tobacco non-user [facility] Start: 07-31-2021 End: 07-17-2022 Alcohol intake Current non-drinker of alcohol (finding) [facility] Start: 06-25-2017 End: 07-17-2022 Tobacco Comment No smoking in childhood or current home. [facility] Start: 1980 Sex Assigned At Not on file [facility] Start: 07-21-2021 End: 07-31-2021 Exposure to SARS-CoV-2 (event) Not sure [facility] Goals Date Patient Goal Desired Activity /State Clinical Notes 11-28-2020 to 11-26-2022 Meche Rankin PA-C - 07/17/2022 2:38 PM EDTSandra Eros KAY - 07/17/2022 1:45 PM EDTTelephone Encounter - Sanya Wilson MD - 08/06/2021 8:24 PM EDTInmalou Wilson MD - 07/31/2021 9:19 AM EDT Note Date & Type Note Facility 11-26-2022 Note HNO ID: [id number] Author: Ronaldo Lemus MD Service: ? Author Type: Physician Type: Progress Notes Filed: 11/26/2022 4:18 PM Note Text: This note was created using [employer]. Subjective Pamela Corral is a 42 year old female. The history is provided by the patient. Fever This is a new problem. The current episode started 2 days ago. The problem occurs constantly. The problem has been rapidly worsening. Maximum temperature: tactile. Associated symptoms include sleepiness, congestion, headaches, muscle aches and cough. Pertinent negatives include no chest pain, no diarrhea, no vomiting and no sore throat. She has tried nothing for the symptoms. Review of Systems Constitutional: Positive for fever. HENT: Positive for congestion. Negative for sore throat. Respiratory: Positive for cough. Cardiovascular: Negative for chest pain. Gastrointestinal: Negative for diarrhea and vomiting. Neurological: Positive for headaches. Objective BP 118/81 Pulse 90 Temp 37.4 ?C (99.3 ?F) Resp 18 Wt 88 kg (194 lb) LMP 06/12/2022 (Approximate) SpO2 99% BMI 40.55 kg/m? Physical Exam Vitals and nursing note reviewed. Constitutional: General: She is not in acute distress. Appearance: Normal appearance. She is not ill-appearing, toxic-appearing or diaphoretic. HENT: Head: Normocephalic and atraumatic. Right Ear: Tympanic membrane, ear canal and external ear normal. Left Ear: Tympanic membrane, ear canal and external ear normal. Nose: Congestion and rhinorrhea (clear) present. Mouth/Throat: Mouth: Mucous membranes are moist. Pharynx: Oropharynx is clear. No oropharyngeal exudate or posterior oropharyngeal erythema. Pulmonary: Effort: Pulmonary effort is normal. No respiratory distress. Breath sounds: Normal breath sounds. No stridor. No wheezing, rhonchi or rales. Musculoskeletal: Cervical back: Normal range of motion and neck supple. No rigidity or tenderness. Lymphadenopathy: Cervical: No cervical adenopathy. Skin: General: Skin is warm and dry. Findings: No rash. Neurological: Mental Status: She is alert. Assessment and Plan (J06.9) Viral URI with cough (primary encounter diagnosis) Comment: Plan: COVID AND INFLUENZA A/B AND RSV NAAT, ROUTINE [facility] 07-17-2022 Note HNO ID: [id number] Author: Meche Rankin PA-C Service: ? Author Type: Physician Management Trainee Program [employer] Type: Progress Notes Filed: 07/17/2022 2:52 PM Note Text: This note was created using [employer]. Subjective Pamela Corral is a 41 year old female. HPI Presents with chest congestion cough wheezing over the past 3 to 4 days. She has a history of asthma. Sore throat as well. No vomiting or diarrhea. Denies chest pain. She has been using her Symbicort inhaler. Has not been using her rescue inhaler or nebulizer. She is out of the albuterol for her nebulizer machine. No fever. No home COVID test done. No sick contacts. Review of Systems Constitutional: Negative. HENT: Positive for congestion and sore throat. Negative for ear pain and postnasal drip. Respiratory: Positive for cough, shortness of breath and wheezing. Cardiovascular: Negative for chest pain. All other systems reviewed and are negative. PAST MEDICAL HISTORY Diagnosis Date Acquired hypothyroidism 04/04/2017 Severe persistent asthma without complication Current Outpatient Medications Medication Sig Dispense Refill budesonide-formoterol (SYMBICORT) 160-4.5 mcg/actuation inhaler Inhale 2 Puffs as instructed twice daily. 1 Inhaler 11 predniSONE (DELTASONE) 20 mg tablet Take 2 tablets by mouth once daily for 5 days. 10 tablet 0 benzonatate (TESSALON PERLES) 100 mg capsule Take 2 capsules by mouth three times daily as needed. 30 capsule 0 albuterol (PROVENTIL) 2.5 mg /3 mL (0.083 %) nebulizer solution Use 3 mL via nebulizer every 4 hours as needed for wheezing/shortness of breath. Use over 5-15minutes. 75 mL 0 diphenhydrAMINE-mylanta ds-lidocaine viscous (MAGIC MOUTHWASH) liqd Take 5 mL by mouth three times daily. (Patient not taking: Reported on 07/17/2022) 450 mL 0 norethindrone (AYGESTIN) 5 mg tablet Take 1 tablet by mouth once daily. (Patient not taking: Reported on 07/31/2021 ) 10 tablet 0 DUPIXENT PEN 300 mg/2 mL pen Inject 300 mg subcutaneously every 2 weeks. (Patient not taking: Reported on 07/31/2021 ) fluticasone (FLONASE) 50 mcg/actuation nasal spray Use 2 Sprays in each nostril once daily. (Patient not taking: Reported on 07/31/2021 ) 1 No current facility-administered medications for this visit. PAST SURGICAL HISTORY Procedure Laterality Date SECTION HX 2015 2007, DANDC SUCTION 09/22/2020 hysteroscopy for retained POC FARZANA US GUIDED NEEDLE BREAST BIOPSY RT Right 2017 breast cyst, benign NASAL SURGERY PROCEDURE 11/16/2019 REDUCTION OF LARGE BREAST Bilateral 2011 FAMILY HISTORY Problem Relation Age of Onset other (Other) Mother low blood pressure Hypertension Father Diabetes Father other (Other) Sister pituitary tumor, benign None Brother Asthma Paternal Grandmother Social History Tobacco Use Smoking status: Never Smokeless tobacco: Never Tobacco comments: No smoking in childhood or current home. Vaping Use Vaping Use: Never used Substance Use Topics Alcohol use: No Drug use: No Objective BP 122/80 Pulse 86 Temp 37.2 ?C (98.9 ?F) Resp 16 Wt 85.7 kg (189 lb) LMP 06/12/2022 (Approximate) SpO2 100% BMI 39.50 kg/m? Physical Exam Vitals reviewed. Constitutional: Appearance: Normal appearance. HENT: Head: Normocephalic and atraumatic. Right Ear: Tympanic membrane, ear canal and external ear normal. Left Ear: Tympanic membrane, ear canal and external ear normal. Nose: Nose normal. Mouth/Throat: Mouth: Mucous membranes are moist. Pharynx: Oropharynx is clear. Cardiovascular: Rate and Rhythm: Normal rate and regular rhythm. Heart sounds: Normal heart sounds. Pulmonary: Effort: Pulmonary effort is normal. No respiratory distress. Breath sounds: Wheezing present. No rhonchi. Skin: General: Skin is warm and dry. Findings: No rash. Neurological: General: No focal deficit present. Mental Status: She is alert. Assessment and Plan ASSESSMENT/PLAN: 1. Exacerbation of asthma, unspecified asthma severity, unspecified whether persistent - ICD9: 493.92, ICD10: J45.901 Chest x-ray clear. Patient feels improved after breathing treatment. Will give prescription for prednisone, Tessalon and albuterol Nebules for her nebulizer. Discussed red flags for ER care. Would recommend follow-up with pulmonology. Patient agreeable with plan. - XR CHEST 2V FRONTAL/LAT - IPRATROPIUM 0.5 MG-ALBUTEROL 3 MG (2.5 MG BASE)/3 ML NEBULIZATION JOSE ALFREDO Rankin PA-C [facility] 07-17-2022 Note HNO ID: [id number] Author: RT Bettina(R) Service: Radiology Author Type: Technologist Type: Progress Notes Filed: 07/17/2022 1:33 PM Note Text: Radiology Service Progress Note PATIENT NAME: Pamela Corral DATE OF SERVICE: July 17, 2022 TIME: 1:25 PM PATIENT IDENTITY VERIFICATION COMPLETED USING TWO (2) IDENTIFIERS: Name and Date of confirmed by patient verbally. FALL SCREENING: Has the patient had 2 falls in the last year or 1 fall with injury or currently using an Ambulatory Assistive Device (Walker, Cane, Wheelchair, Crutches, etc.)? No PATIENT GENDER DATA: Female. status: : No status: NO. PATIENT RELEVANT IMPLANT DATA REVIEWED: Yes RADIOLOGY DEPARTMENT: General X-ray: Exam(s) Completed: Chest X-Ray PERIPHERAL IV DATA: Not applicable SIGNED BY: RT Bettina(R) July 17, 2022 1:25 PM [facility] 07-17-2022 History of Presen t illness Narrative This note was created using NoteWriter. Subjective Pamela Corral is a 41 year old female. HPI Presents with chest congestion cough wheezing over the past 3 to 4 days. She has a history of asthma. Sore throat as well. No vomiting or diarrhea. Denies chest pain. She has been using her Symbicort inhaler. Has not been using her rescue inhaler or nebulizer. She is out of the albuterol for her nebulizer machine. No fever. No home COVID test done. No sick contacts. Review of Systems Constitutional: Negative. HENT: Positive for congestion and sore throat. Negative for ear pain and postnasal drip. Respiratory: Positive for cough, shortness of breath and wheezing. Cardiovascular: Negative for chest pain. All other systems reviewed and are negative. PAST MEDICAL HISTORY Diagnosis Date Acquired hypothyroidism 04/04/2017 Severe persistent asthma without complication Current Outpatient Medications Medication Sig Dispense Refill budesonide-formoterol (SYMBICORT) 160-4.5 mcg/actuation inhaler Inhale 2 Puffs as instructed twice daily. 1 Inhaler 11 predniSONE (DELTASONE) 20 mg tablet Take 2 tablets by mouth once daily for 5 days. 10 tablet 0 benzonatate (TESSALON PERLES) 100 mg capsule Take 2 capsules by mouth three times daily as needed. 30 capsule 0 albuterol (PROVENTIL) 2.5 mg /3 mL (0.083 %) nebulizer solution Use 3 mL via nebulizer every 4 hours as needed for wheezing/shortness of breath. Use over 5-15minutes. 75 mL 0 diphenhydrAMINE-mylanta ds-lidocaine viscous (MAGIC MOUTHWASH) liqd Take 5 mL by mouth three times daily. (Patient not taking: Reported on 07/17/2022) 450 mL 0 norethindrone (AYGESTIN) 5 mg tablet Take 1 tablet by mouth once daily. (Patient not taking: Reported on 07/31/2021 ) 10 tablet 0 DUPIXENT PEN 300 mg/2 mL pen Inject 300 mg subcutaneously every 2 weeks. (Patient not taking: Reported on 07/31/2021 ) fluticasone (FLONASE) 50 mcg/actuation nasal spray Use 2 Sprays in each nostril once daily. (Patient not taking: Reported on 07/31/2021 ) 1 No current facility-administered medications for this visit. PAST SURGICAL HISTORY Procedure Laterality Date SECTION HX 2015 2007, D&C SUCTION 09/22/2020 hysteroscopy for retained POC FARZANA US GUIDED NEEDLE BREAST BIOPSY RT Right 2017 breast cyst, benign NASAL SURGERY PROCEDURE 11/16/2019 REDUCTION OF LARGE BREAST Bilateral 2011 FAMILY HISTORY Problem Relation Age of Onset other (Other) Mother low blood pressure Hypertension Father Diabetes Father other (Other) Sister pituitary tumor, benign None Brother Asthma Paternal Grandmother Social History Tobacco Use Smoking status: Never Smokeless tobacco: Never Tobacco comments: No smoking in childhood or current home. Vaping Use Vaping Use: Never used Substance Use Topics Alcohol use: No Drug use: No Objective BP 122/80 Pulse 86 Temp 37.2 C (98.9 F) Resp 16 Wt 85.7 kg (189 lb) LMP 06/12/2022 (Approximate) SpO2 100% BMI 39.50 kg/m Physical Exam Vitals reviewed. Constitutional: Appearance: Normal appearance. HENT: Head: Normocephalic and atraumatic. Right Ear: Tympanic membrane, ear canal and external ear normal. Left Ear: Tympanic membrane, ear canal and external ear normal. Nose: Nose normal. Mouth/Throat: Mouth: Mucous membranes are moist. Pharynx: Oropharynx is clear. Cardiovascular: Rate and Rhythm: Normal rate and regular rhythm. Heart sounds: Normal heart sounds. Pulmonary: Effort: Pulmonary effort is normal. No respiratory distress. Breath sounds: Wheezing present. No rhonchi. Skin: General: Skin is warm and dry. Findings: No rash. Neurological: General: No focal deficit present. Mental Status: She is alert. Assessment and Plan ASSESSMENT/PLAN: 1. Exacerbation of asthma, unspecified asthma severity, unspecified whether persistent - ICD9: 493.92, ICD10: J45.901 Chest x-ray clear. Patient feels improved after breathing treatment. Will give prescription for prednisone, Tessalon and albuterol Nebules for her nebulizer. Discussed red flags for ER care. Would recommend follow-up with pulmonology. Patient agreeable with plan. - XR CHEST 2V FRONTAL/LAT - IPRATROPIUM 0.5 MG-ALBUTEROL 3 MG (2.5 MG BASE)/3 ML NEBULIZATION JOSE ALFREDO Rankin PA-C documented in this encounter [facility] 07-17-2022 Nurse Note 2.5 solution aerosol treatment given per provider's orders. Prior to treatment O2 sat is 100%. Treatment completed. O2 sat is 99%. Tolerated well. Jackie Cooney LPN documented in this encounter [facility] 08-06-2021 Miscellaneous Notes Please call her. ESR and CRP lot better Will not be starting on plaquenil Continue to use aleve bid as discussed before Vit d is 19, start 2000 international unit(s) Daily OTC Sanya Wilson MD documented in this encounter [facility] 07-31-2021 Note HNO ID: [id number] Author: Sanya Wilson MD Service: ? Author Type: Physician Type: Progress Notes Filed: 08/06/2021 8:26 PM Note Text: This note was created using [employer]. Subjective Pamela Corral is a 40 year old female. Frozen shoulder exercise and is lot better No pain No wrist hand pain Now right hip pain >> left Few week ago No spine pain Still with stiffness sensation in the morning Has to [place] herself to work Rice and milk seem to precipitate the joint pain No pain in the knee ankle and feet 07/31/21 Main issue fatique and stiffness Review of Systems Objective Blood Pressure 106/72 Pulse 70 Temperature 36.8 ?C (98.2 ?F) Weight 84.8 kg (187 lb) Last Menstrual Period 04/27/2020 Body Mass Index 39.08 kg/m? Physical Exam Vitals reviewed. Constitutional: General: She is not in acute distress. Appearance: Normal appearance. She is not ill-appearing or toxic-appearing. Cardiovascular: Rate and Rhythm: Normal rate and regular rhythm. Heart sounds: Normal heart sounds. No murmur heard. No friction rub. No gallop. Pulmonary: Effort: No respiratory distress. Breath sounds: Normal breath sounds. No stridor. No wheezing or rhonchi. Abdominal: General: There is no distension. Palpations: Abdomen is soft. There is no mass. Tenderness: There is no abdominal tenderness. Hernia: No hernia is present. Musculoskeletal: Right shoulder: Normal. Left shoulder: Normal. Right elbow: Normal. Left elbow: Normal. Right wrist: Normal. Left wrist: Normal. Right hand: Normal. Left hand: Normal. Cervical back: No rigidity or tenderness. Thoracic back: Normal. Lumbar back: Normal. Right hip: Normal. Left hip: Normal. Right knee: Normal. Left knee: Normal. Right ankle: Normal. Left ankle: Normal. Right foot: Normal. Left foot: Normal. Comments: Please see note for exam clarification and details( There is no evidence on exam of synovitis, enthesitis, and hypermobility / tenderness. Lymphadenopathy: Cervical: No cervical adenopathy. Skin: Findings: No rash. Neurological: Mental Status: She is alert. Psychiatric: Mood and Affect: Mood normal. Behavior: Behavior normal. Thought Content: Thought content normal. Judgment: Judgment normal. Assessment and Plan First visit 11/28/2020 ( PCP referred ) note reviewed 11/28/2020 (( [place] resident ) Polyarthralgia Inflammatory polyarthropathy 07/2020 CRP 25 high ( range < 0.3 mg./l) ) ESR 36 mm high (<30 ) ( MATT RF negative ) 12/02/2020 IgA, IgG Transglutaminase Ab: negative, IgA (mg/dl): 285 12/02/2020 IgM 119 IgG 1500, Post vaccination diptheria antibody tetanus antibody normal, post vaccination pneumococcal low in serotype : 3/14 12/02/2020 ESR 32 mm crp 1.9 mg.dl 08/04/21 ESR 26 crp 1.1 (<0.9 mg.dl) RF CCP negative 07/2020 T3 normal 07/2017 [facility] [place] negative , eosinophil 0.18, IgE 149 high, 10/2020 CT abd normal (( shoulder pain, hand pain, hip pains, onset 2019. 12/08 visit only shoulder impingement ) ( pain in feet is new ) 03/08/2021 (( exam 08/09 normal, normal gingiva )) TREATMENT Motrin with relief. 11/28/2020 plaquenil 200 mg daily ( does not meet criteria for RA at present ) 01/18/21 started ( some improvement ) 03/08/2021 some foot pains are there (distant visit), but for shoulder pains, other pains have receded, shoulder frozen shoulder component mobic 03/11 started (( did not start as joint pains subsided) 07/31/21 get labs on her for now, to call for labs if persistent inflammation start plaquenil, otherwise OK for aleve bid see in 6 months. ( avoid sugar for now ) 07/31/21 08/04/21 moderate, improvement keep on aleve bid for now. Drug and disease monitoring 07/2020 alk phos 130 high,( <117 ) ( alt ast normal ) ( range ?) Anemia 07/2020 11.1/36.8 low 07/2020 iron low 36, B12 normal (2018 not anemic ) Vitamin D deficiency : last lab: 05/2020 10 07/2020 Vit D 19 ( 50 K done ) 11/28/2020 57704 intermittent : (adv 35093 unit weekly ) 08/04/21 vit d 19 ( take 2000 international unit(s) Daily ) Neck pain ( Pain from the cervical spine is radiating to the shoulders. ?) ( no bruxism ) (2019 onset ) ( no low back pain ) 11/28/2020 11/28/2020 exam tender point exam is normal Shoulder pains ( intermittent ) 11/28/2020 exam impingement bilateral Hand pain ( resolved at present ) ( intermittent pains ) 11/28/2020 exam vladislav. Hypothyroid (2016 ) ( not on medications ) 9 on medicine before ) 11/28/2020 Moderate persistent asthma Nasal polyp (2018 onset ) pulm seen 02/05 08/06 PFT FVC 2.89 90%, FEV1 1.83 68% 06/2017 PFT with 12% improvement in FEV1 after albuterol 10/2019 surg done. ( pneumovax done 2018 ) ? 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 ( joint Mable (more content not included)... [facility] 07-31-2021 History of Presen t illness Narrative This note was created using NoteWriter. Subjective Pamela Corral is a 40 year old female. Frozen shoulder exercise and is lot better No pain No wrist hand pain Now right hip pain >> left Few week ago No spine pain Still with stiffness sensation in the morning Has to [place] herself to work Rice and milk seem to precipitate the joint pain No pain in the knee ankle and feet 07/31/21 Main issue fatique and stiffness Review of Systems Objective Blood Pressure 106/72 Pulse 70 Temperature 36.8 C (98.2 F) Weight 84.8 kg (187 lb) Last Menstrual Period 04/27/2020 Body Mass Index 39.08 kg/m Physical Exam Vitals reviewed. Constitutional: General: She is not in acute distress. Appearance: Normal appearance. She is not ill-appearing or toxic-appearing. Cardiovascular: Rate and Rhythm: Normal rate and regular rhythm. Heart sounds: Normal heart sounds. No murmur heard. No friction rub. No gallop. Pulmonary: Effort: No respiratory distress. Breath sounds: Normal breath sounds. No stridor. No wheezing or rhonchi. Abdominal: General: There is no distension. Palpations: Abdomen is soft. There is no mass. Tenderness: There is no abdominal tenderness. Hernia: No hernia is present. Musculoskeletal: Right shoulder: Normal. Left shoulder: Normal. Right elbow: Normal. Left elbow: Normal. Right wrist: Normal. Left wrist: Normal. Right hand: Normal. Left hand: Normal. Cervical back: No rigidity or tenderness. Thoracic back: Normal. Lumbar back: Normal. Right hip: Normal. Left hip: Normal. Right knee: Normal. Left knee: Normal. Right ankle: Normal. Left ankle: Normal. Right foot: Normal. Left foot: Normal. Comments: Please see note for exam clarification and details( There is no evidence on exam of synovitis, enthesitis, and hypermobility / tenderness. Lymphadenopathy: Cervical: No cervical adenopathy. Skin: Findings: No rash. Neurological: Mental Status: She is alert. Psychiatric: Mood and Affect: Mood normal. Behavior: Behavior normal. Thought Content: Thought content normal. Judgment: Judgment normal. Assessment and Plan First visit 11/28/2020 ( PCP referred ) note reviewed 11/28/2020 (( [place] resident ) Polyarthralgia Inflammatory polyarthropathy 07/2020 CRP 25 high ( range < 0.3 mg./l) ) ESR 36 mm high (<30 ) ( MATT RF negative ) 12/02/2020 IgA, IgG Transglutaminase Ab: negative, IgA (mg/dl): 285 12/02/2020 IgM 119 IgG 1500, Post vaccination diptheria antibody tetanus antibody normal, post vaccination pneumococcal low in serotype : 3/14 12/02/2020 ESR 32 mm crp 1.9 mg.dl 07/2020 T3 normal 07/2017 [facility] [place] negative , eosinophil 0.18, IgE 149 high, 10/2020 CT abd normal (( shoulder pain, hand pain, hip pains, onset 2019. 12/08 visit only shoulder impingement ) ( pain in feet is new ) 03/08/2021 (( exam 08/09 normal, normal gingiva )) TREATMENT Motrin with relief. 11/28/2020 plaquenil 200 mg daily ( does not meet criteria for RA at present ) 01/18/21 started ( some improvement ) 03/08/2021 some foot pains are there (distant visit), but for shoulder pains, other pains have receded, shoulder frozen shoulder component mobic 03/11 started (( did not start as joint pains subsided) 07/31/21 get labs on her for now, to call for labs if persistent inflammation start plaquenil, otherwise OK for aleve bid see in 6 months. ( avoid sugar for now ) 07/31/21 Drug and disease monitoring 07/2020 alk phos 130 high,( <117 ) ( alt ast normal ) ( range ?) Anemia 07/2020 11.1/36.8 low 07/2020 iron low 36, B12 normal (2017 not anemic ) Vitamin D deficiency : last lab: 05/2020 10 07/2020 Vit D 19 ( 50 K done ) 11/28/2020 [id number] intermittent : (adv 16568 unit weekly ) Neck pain ( Pain from the cervical spine is radiating to the shoulders. ?) ( no bruxism ) (2019 onset ) ( no low back pain ) 11/28/2020 11/28/2020 exam tender point exam is normal Shoulder pains ( intermittent ) 11/28/2020 exam impingement bilateral Hand pain ( resolved at present ) ( intermittent pains ) 11/28/2020 exam vladislav. Hypothyroid (2016 ) ( not on medications ) 9 on medicine before ) 11/28/2020 Moderate persistent asthma Nasal polyp (2018 onset ) pulm seen 02/05 08/06 PFT FVC 2.89 90%, FEV1 1.83 68% 06/2017 PFT with 12% improvement in FEV1 after albuterol 10/2019 surg done. ( pneumovax done 2018 ) ? 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 ( joint Pain before that ) (( soda stopped 05/09, drinks tea am with sugar 07/31/21 ) No history of psoriasis, ulcerative colitis, Chron's disease, celiac disease or iritis / uveitis in family. COVID 2 done 08/08 done 07/31/21 ( booster advised ) COVID non so far 07/31/21 Please call if Covid positive, will initiate referral for Monoclonal antibody progression. Understands not FDA approved, but will decrease likelihood of serious COVID.The combination of bebtelivimab iv only for use in patients with positive SARS-CoV-2 direct viral testing who are at high risk for progression to severe disease, including hospitalization or . ( also approval for Paxlovid bid 5 days (nirmatrelvir + ritonavir ) needs [facility] .( for [place] residents, can get iv remdesivir three days in patient (new virus Omicron BA.2 not responding to prev med) documented in this encounter [facility] 03-08-2021 Note HNO ID: [id number] Author: Sanya Wilson MD Service: ? Author Type: Physician Type: Progress Notes Filed: 03/08/2021 11:17 AM Note Text: This note was created using [employer]. Subjective Pamela Corral is a 40 year old female. Still with pains in both shoulder At time pain in the toes in the feet Not pain in the wrist hand Patient has pain in the shoulder on over head activity. Range of motion in the shoulder is limited. Pain in the joint while patient is sleeping. At time feels totally gone Even day time pain is there Motrin 2 pills intermittent like about once a week Using plaquenil daily. Review of Systems Objective Last Menstrual Period 04/27/2020 Physical Exam Constitutional: General: She is not in acute distress. Appearance: She is not ill-appearing or toxic-appearing. Musculoskeletal: Comments: Wrist hand normal. shoulders mild Decreased range of motion notes on exam . Assessment and Plan First visit 11/28/2020 ( PCP referred ) note reviewed 11/28/2020 Polyarthralgia Inflammatory polyarthropathy 07/2020 CRP 25 high ( range < 0.3 mg./l) ) ESR 36 mm high (<30 ) ( MATT RF negative ) 12/02/2020 IgA, IgG Transglutaminase Ab: negative, IgA (mg/dl): 285 12/02/2020 IgM 119 IgG 1500, Post vaccination diptheria antibody tetanus antibody normal, post vaccination pneumococcal low in serotype : 05/0112/02/2020 ESR 32 mm crp 1.9 mg.dl 07/2020 T3 normal 07/2017 [facility] [place] negative , eosinophil 0.18, IgE 149 high, 10/2020 CT abd normal (( shoulder pain, hand pain, hip pains, onset 2019. 12/08 visit only shoulder impingement ) ( pain in feet is new ) 03/08/2021 TREATMENT Motrin with relief. 11/28/2020 plaquenil 200 mg daily ( does not meet criteria for RA at present ) 01/18/21 started 03/08/2021 some foot pains are there (distant visit), but for shoulder pains, other pains have receded, shoulder frozen shoulder component Start mobic and exercise taught , see in 6 months. Drug and disease monitoring 07/2020 alk phos 130 high,( <117 ) ( alt ast normal ) ( range ?) Anemia 07/2020 11.1/36.8 low 07/2020 iron low 36, B12 normal (2018 not anemic ) Vitamin D deficiency : last lab: 05/2020 10 07/2020 Vit D 19 ( 50 K done ) 11/28/2020 [id number] intermittent : (adv 75791 unit weekly ) Neck pain ( Pain from the cervical spine is radiating to the shoulders. ?) ( no bruxism ) (2019 onset ) ( no low back pain ) 11/28/2020 11/28/2020 exam tender point exam is normal Shoulder pains ( intermittent ) 11/28/2020 exam impingement bilateral Hand pain ( resolved at present ) ( intermittent pains ) 11/28/2020 exam vladislav. Hypothyroid (2017 ) ( not on medications ) 9 on medicine before ) 11/28/2020 Moderate persistent asthma Nasal polyp (2019 onset ) pulm seen 02/05 08/06 PFT FVC 2.89 90%, FEV1 1.83 68% 06/2017 PFT with 12% improvement in FEV1 after albuterol 10/2019 surg done. ( pneumovax done 2018 ) ? 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 ( joint Pain before that ) No history of psoriasis, ulcerative colitis, Chron's disease, celiac disease or iritis / uveitis in family. [facility] 11-28-2020 Note HNO ID: [id number] Author: Sanya Wilson MD Service: ? Author Type: Physician Type: Progress Notes Filed: 12/03/2020 5:58 PM Note Text: This note was created using [employer]. Subjective Pamela Corral is a 40 year old female. Shoulder pain bilateral Pain on abduction 2018 started after visit to [place] Pain onset [place] 2019 Intermittent No wrist pain Hand pains Hip pain Like locking on ambulation No knee ankle feet pain No DVT No Raynaud's Phenomenon No oral sores Mostly hand pain Does notice am stiffness. Review of Systems Objective Blood Pressure 113/73 Pulse 84 Temperature 37 ?C (98.6 ?F) (Temporal) Height 147.3 cm (4' 10 ) Weight 89.5 kg (197 lb 6.4 oz) Last Menstrual Period 04/27/2020 Body Mass Index 41.26 kg/m? Physical Exam Vitals reviewed. Constitutional: General: She is not in acute distress. Appearance: Normal appearance. She is not ill-appearing or toxic-appearing. Cardiovascular: Rate and Rhythm: Normal rate and regular rhythm. Heart sounds: Normal heart sounds. No murmur heard. No friction rub. No gallop. Pulmonary: Effort: No respiratory distress. Breath sounds: Normal breath sounds. No stridor. No wheezing or rhonchi. Abdominal: General: There is no distension. Palpations: Abdomen is soft. There is no mass. Tenderness: There is no abdominal tenderness. Hernia: No hernia is present. Musculoskeletal: Right shoulder: Normal. Left shoulder: Normal. Right elbow: Normal. Left elbow: Normal. Right wrist: Normal. Left wrist: Normal. Right hand: Normal. Left hand: Normal. Cervical back: No rigidity or tenderness. Thoracic back: Normal. Lumbar back: Normal. Right hip: Normal. Left hip: Normal. Right knee: Normal. Left knee: Normal. Right lower leg: No edema. Left lower leg: No edema. Right ankle: Normal. Left ankle: Normal. Right foot: Normal. Left foot: Normal. Comments: Shoulder impingement No clear synovitis Lymphadenopathy: Cervical: No cervical adenopathy. Skin: Findings: No rash. Neurological: Mental Status: She is alert. Psychiatric: Mood and Affect: Mood normal. Behavior: Behavior normal. Thought Content: Thought content normal. Judgment: Judgment normal. Assessment and Plan First visit 11/28/2020 ( PCP referred ) note reviewed 11/28/2020 Polyarthralgia Inflammatory polyarthropathy 07/2020 CRP 25 high ( range < 0.3 mg./l) ) ESR 36 mm high (<30 ) ( MATT RF negative ) 12/02/2020 IgA, IgG Transglutaminase Ab: negative, IgA (mg/dl): 285 12/02/2020 IgM 119 IgG 1500, Post vaccination diptheria antibody tetanus antibody normal, post vaccination pneumococcal low in serotype : 3/14 12/02/2020 ESR 32 mm crp 1.9 mg.dl 07/2020 T3 normal 07/2017 [facility] [place] negative , eosinophil 0.18, IgE 149 high, 10/2020 CT abd normal TREATMENT Motrin with relief. 11/28/2020 plaquenil 200 mg daily ( does not meet criteria for RA at present ) Risk and benefit of plaquenil treatment reinforced with patient including the need for yearly opthalmologic exam. Patient make aware of the risk of retinal toxicity with plaquenil. To take this pill with food. ( other rare side effects include hypo-hyper pigmentation, pyschosis )Nausea and vomit are common side effects, can cut back on dose if this happens, if cannot tolerate nausea then may have to stop the drugs. Drug and disease monitoring 07/2020 alk phos 130 high,( <117 ) ( alt ast normal ) ( range ?) Anemia 07/2020 11.1/36.8 low 07/2020 iron low 36, B12 normal (2018 not anemic ) Vitamin D deficiency : last lab: 05/2020 10 07/2020 Vit D 19 ( 50 K done ) 11/28/2020 [id number] intermittent : (adv 47565 unit weekly ) Neck pain ( Pain from the cervical spine is radiating to the shoulders. ?) ( no bruxism ) (2019 onset ) ( no low back pain ) 11/28/2020 11/28/2020 exam tender point exam is normal Shoulder pains ( intermittent ) 11/28/2020 exam impingement bilateral Hand pain ( resolved at present ) ( intermittent pains ) 11/28/2020 exam vladislav. Hypothyroid (2017 ) ( not on medications ) 9 on medicine before ) 11/28/2020 Moderate persistent asthma Nasal polyp (2018 onset ) pulm seen 02/05 08/06 PFT FVC 2.89 90%, FEV1 1.83 68% 06/2017 PFT with 12% improvement in FEV1 after albuterol 10/2019 surg done. ( pneumovax done 2018 ) ? 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 ( joint Pain before that ) No history of psoriasis, ulcerative colitis, Chron's disease, celiac disease or iritis / uveitis in family. [facility] Evaluation note No Assessments Infor mation Available [facility] Work Phone: Evaluation note No assessment inform ation available [facility] Work Phone: [facility] Exacerbation of asthma, unspecified asthma severity, unspecified whether persistent- Primary documented in this encounter [facility] Summary Purpose Family History No Family History Records FoundNo Family History Records FoundNo Family History Records Found Advance Directives No Advanced Directives Records Found Advance Directive Response Recorded Date/ Time Advanced Directive: N May 20, 2 022 1:54pm [place] DNR Comfort Care Directives: N May 20, 2021 1:54pm Organ Donation Card: N May 20, 2021 1:54pm Chief Complaint and Reason for Visit Reason for Visit DENTAL PAIN Medications Administered Section Inactive Administered Medications - up to 3 most recent administrations Medication Order MAR Action Action Date Dose Rate Site ipratropium-albuterol 3 mL nebulizer solution (DUONEB) 3 mL, INHALATION, ONCE, 1 dose, On Sat07/17/22 at 1330, PROTECT FROM LIGHT. The unit-dose vial should remain stored in the protective foil pouch until time of use. Given 07/17/2022 1:40 PM EDT 3 mL Additional Source Comments INFORMATION SOURCE (unrecogn ized section and content) DATE CREATED AUTHOR AUTHOR'S ORGANIZ ATION 08/07/2021 [facility] DATE CREATED AUTHOR AUTHOR'S ORGANIZ ATION 11/28/2022 [facility] Goals (unrecognized section and content) Goals may be documented in a n alternate section Source Comments (unrecognize d section and content) In the event this informatio n is protected by the Federal Confidentiality of Alcohol and Drug Abuse Patient Records regulations: The Federal rules restrict any use of the information to criminally investigate or prosecute any alcohol or drug abuse patient.[facility] the event this information is protected by the Federal Confidentiality of Alcohol and Drug Abuse Patient Records regulations: The Federal rules restrict any use of the information to criminally investigate or prosecute any alcohol or drug abuse patient.[facility] the event this information is protected by the Federal Confidentiality of Alcohol and Drug Abuse Patient Records regulations: The Federal rules restrict any use of the information to criminally investigate or prosecute any alcohol or drug abuse patient.[facility] Reason for Visit (unrecogniz ed section and content) Reason Comments Patient Update Reason Comments Chest Congestion cough, wheezing x 3- 4 days Care Teams (unrecognized sec tion and content) 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 This clinical summary was aggregated from multiple sources. Caution should be exercised in using it in the provision of clinical care. This summary normalizes information from multiple sources, and as a consequence, information in this document may materially change the coding, format and clinical context of patient data. In addition, data may be omitted in some cases. CLINICAL DECISIONS SHOULD BE BASED ON THE PRIMARY CLINICAL RECORDS. [facility] Status Overload [facility]. provides no warranty or guarantee of the accuracy or completeness of information in this document.
[2023-04-04 12:09] LABS: ANTINUCLEAR ANTIBODIES DIRECT Negative (Negative)
[2023-04-04 13:08] LABS: CCP IgG Antibodies 8 units (0-19)
== END | disposition home or self-care (01) ==
LOC: MTLAB 15:36
PROVIDERS: PCP Family Medicine; Referring Provider Family Medicine; Visit Provider Family Medicine
DX: E61.1 Iron deficiency (principal); M25.50 Pain in unspecified joint; E03.9 Hypothyroidism, unspecified; E55.9 Vitamin D deficiency, unspecified
CPT/HCPCS: 36415; 80053; 82306; 82607; 82728; 83540; 83550; 84439; 84443; 84481; 85025; 85045; 85652; 86038; 86140; 86200; 86431

== ENCOUNTER → 2023-06-12 | Outpatient (CLI) | payer MEDICAID, SELFPAY ==
--- NOTE | 2023-06-12 12:39 | RAD_ITS ---
STUDY: X-RAY - ACUTE ABDOMINAL SERIES REASON FOR EXAM: Female, 42 years old. Pain. TECHNIQUE: Single view of the chest. Supine, and erect view(s) of the abdomen were obtained on 5 images. COMPARISON: 01/02/2023 FINDINGS: Low volume inspiration. Normal size heart. Normal mediastinum and justin. Normal visualized pulmonary arteries. Normal visualized aortic arch and descending thoracic aorta. Normal bowel gas pattern with air seen to the rectosigmoid. Moderate amount of feces in the colon. The soft tissue structures of the abdomen and pelvis are unremarkable. Incidentally noted is a small clip projected over the lateral aspect of the right 11th rib, unchanged. 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 Mild arthrosis of the symphysis pubis. RAD/Acute Abdomen Inc Chest IMPRESSION: Low volume inspiration. No acute abnormality of the chest, abdomen or pelvis. Electronically Signed: Santiago Aguila MD at 13:40 EDT ,
[2023-06-12 16:06] LABS: Amylase 28 U/L (25-115); Lipase 40 U/L (13-75)
== END | disposition home or self-care (01) ==
PROVIDERS: PCP Family Medicine; Visit Provider Family Medicine
DX: R10.9 Unspecified abdominal pain (principal)
CPT/HCPCS: 36415; 74022; 82150; 83690

== ENCOUNTER → 2023-09-03 | Outpatient (CLI) | payer MEDICAID, SELFPAY ==
--- NOTE | 2023-09-03 09:59 | US_ITS ---
STUDY: ABDOMINAL ULTRASOUND - RIGHT UPPER QUADRANT REASON FOR VISIT: Female, 42 years old mid abdominal postprandial pain. TECHNIQUE: Ultrasound evaluation of the right upper quadrant was performed with real-time and static rosas-scale imaging. TECHNICAL QUALITY: Adequate. COMPARISON: Comparison is made with prior study January 16, 2022. FINDINGS: Liver: The liver measures 16.6 cm. There is increased echogenicity consistent with fatty infiltration. The bile ducts are within normal limits. There is hepatic color flow. The direction of portal flow is hepatopetal. There is no demonstrated mass lesion. Gallbladder: Normal distended gallbladder. The gallbladder wall measures 2.0 mm. There is a negative sonographic Lopez''s sign. There is no pericholecystic fluid. There are no gallstones. Common Bile Duct (C.B.D.): The common bile duct measures 5.0 mm. Pancreas: Normal size of the head, body and tail of the pancreas. There is normal echogenicity of the pancreas. There is no demonstrated pancreatic mass or cyst. Right Kidney: Normal size of the right kidney. The right kidney measures 10.6 cm x 4.3 cm x 4.4 cm. Normal renal cortex. The right cortex measures 1.3 cm. There is a 2.5 cm x 2.4 cm x 2.4 cm cyst in the lower pole of the right kidney. There is no right hydronephrosis. US/Abdomen Limited IMPRESSION: Fatty infiltration of the liver. Right renal cyst. Electronically Signed: Lamin Duvall MD at 11:15 EDT ,
== END | disposition home or self-care (01) ==
PROVIDERS: PCP Family Medicine; Referring Provider Internal Medicine Gastroenterology; Visit Provider Internal Medicine Gastroenterology
DX: R10.9 Unspecified abdominal pain (principal)
CPT/HCPCS: 76705

== ENCOUNTER → 2024-04-16 | Outpatient (CLI) | payer OTHER, SELFPAY ==
[2024-04-16 15:01] LABS: Absolute Lymphocyte Count 2.56 X10^3/uL (0.83-4.51); Absolute Neutrophil Count 6.8 X10^3/uL (2.0-7.7); Basophil# 0.08 X10^3/uL; Basophil% 0.8 % (0-1); Eosinophil# 0.42 X10^3/uL; Hematocrit 36.3 % (37-47); Lymphocyte # 2.56 X10^3/ul (0.83-4.51); Lymphocyte % 24.6 % (19-41); Mean Corp Hgb Conc 30.3 g/dL (32-36); Mean Corpuscular Hgb 23.9 pg (27.0-32.0); Mean Corpuscular Volume 78.7 fL (81-99); Mean Platelet Vol. 10.7 fl (6.2-12.0); Monocyte# 0.49 X10^3/uL; Monocyte% 4.7 % (0-10); NRBC Flagged by Analyzer 0 % (0-5); Neutrophil # 6.82 X10^3/uL (2.7-7.7); Neutrophil % 65.5 % (47-70); Platelet Count 347 K/mm3 (150-450); RBC Distribution Width CV 16.3 % (11.6-14.6); RBC Distribution Width SD 46.5 fl (35.1-43.9); Red Blood Count 4.61 M/mm3 (4.2-5.4); White Blood Count 10.4 K/mm3 (4.4-11.0)
[2024-04-16 15:45] LABS: Hemoglobin A1c 5.7 % (<=5.6)
[2024-04-16 15:54] LABS: ALB/GLOB Ratio 1.1 RATIO (0.9-2.4); AST(SGOT) 26 U/L (<=31); Alanine Aminotransfer ALT/SGPT 22 U/L (<=34); Alkaline Phosphatase 107 U/L (35-104); Anion Gap 10 (5-15); BUN 11 mg/dL (4-19); BUN/Creat Ratio 18.4 RATIO (10-20); Calcium 9.5 mg/dL (7.6-11.0); Carbon Dioxide 24.7 mmol/L (22.0-29.0); Chloride 104 mmol/L (96-108); Creatinine, Serum 0.6 mg/dL (0.6-1.0); EST Glomerular Filtration Rate 113 (>60); Ferritin 30 ng/mL (22-378); Globulin 3.8 g/dL (2.2-4.2); Glucose 126 mg/dL (70-99); Iron 26 ug/dL (50-170); Potassium 4.2 mmol/L (3.3-5.1); Protein, Total 7.8 g/dL (5.9-8.4); Sodium Level 139 mmol/L (133-145); Total Bilirubin 0.19 mg/dL (0.00-1.30); Vitamin B12 476 pg/mL (180-914); Vitamin D,25 Hydroxy 15.8 ng/mL (30-100)
== END | disposition home or self-care (01) ==
PROVIDERS: PCP Family Medicine; Referring Provider Family Medicine; Visit Provider Family Medicine
DX: K76.0 Fatty (change of) liver, not elsewhere classified (principal); D64.9 Anemia, unspecified; R53.83 Other fatigue
CPT/HCPCS: 36415; 80053; 82306; 82607; 82728; 83036; 83540; 84443; 85025

== ENCOUNTER → 2024-10-05 | Outpatient (CLI) | payer OTHER, SELFPAY ==
--- NOTE | 2024-10-05 16:24 | RAD_ITS ---
PROCEDURE: ANKLE MIN 3 VIEWS 10/05/2024 REASON FOR EXAM: L ANKLE PAIN. SWELLING IN ATFL AREA TECHNIQUE: ANKLE MIN 3 VIEWS Laterality: Left COMPARISON: None. FINDINGS: BONES: No acute fracture or focal osseous lesion. Small plantar and dorsal calcaneal spurs. JOINTS: No dislocation. The joint spaces are normal. SOFT TISSUES: Mild swelling in the lateral ankle. RAD/Ankle min 3 Views IMPRESSION: SOFT TISSUE SWELLING. NO FRACTURE IDENTIFIED. Reading Location: [id number]
[2024-10-05 17:48] LABS: Hematocrit 34.7 % (37-47); Hemoglobin 10.6 g/dL (12.0-15.0); Mean Corp Hgb Conc 30.5 g/dL (32-36); Mean Corpuscular Volume 78.7 fL (81-99); Mean Platelet Vol. 11.9 fl (6.2-12.0); Platelet Count 324 K/mm3 (150-450); RBC Distribution Width CV 15.9 % (11.6-14.6); RBC Distribution Width SD 45.8 fl (35.1-43.9); Red Blood Count 4.41 M/mm3 (4.2-5.4); White Blood Count 10.3 K/mm3 (4.4-11.0)
[2024-10-05 18:31] LABS: Ferritin 37 ng/mL (22-378); Iron 19 ug/dL (50-170)
== END | disposition home or self-care (01) ==
LOC: MTLAB 16:20
PROVIDERS: PCP Family Medicine; Referring Provider Family Medicine; Visit Provider Family Medicine
DX: E61.1 Iron deficiency (principal); M79.672 Pain in left foot
CPT/HCPCS: 36415; 73610; 82728; 83540; 85027

== ENCOUNTER → 2024-12-23 | Outpatient (CLI) | payer OTHER, SELFPAY ==
[2024-12-23 12:34] LABS: Hematocrit 36.9 % (37-47); Hemoglobin 11.6 g/dL (12.0-15.0); Immature Reticulocyte Fraction 21.80 % (3.00-15.90); Mean Corp Hgb Conc 31.4 g/dL (32-36); Mean Corpuscular Volume 76.6 fL (81-99); Mean Platelet Vol. 11.1 fl (6.2-12.0); Platelet Count 326 K/mm3 (150-450); RBC Distribution Width CV 16.7 % (11.6-14.6); RBC Distribution Width SD 45.9 fl (35.1-43.9); Red Blood Count 4.82 M/mm3 (4.2-5.4); Reticulocyte Count 1.87 % (0.5-1.5); White Blood Count 10.0 K/mm3 (4.4-11.0)
[2024-12-23 15:59] LABS: AST(SGOT) 34 U/L (<=31); Alanine Aminotransfer ALT/SGPT 31 U/L (<=34); Albumin, Serum 4.1 g/dL (3.5-5.0); Alkaline Phosphatase 101 U/L (35-104); Anion Gap 11 (5-15); BUN 11 mg/dL (4-19); BUN/Creat Ratio 17.7 RATIO (10-20); CORTISOL AM 7.51 ug/dL (6.02-18.40); Calcium,Total 9.5 mg/dL (7.6-11.0); Carbon Dioxide 23.6 mmol/L (21.0-32.0); Chloride 105 mmol/L (98-108); Cholesterol 180 mg/dL (<=200); Ferritin 35 ng/mL (22-378); Globulin 3.9 g/dL (2.2-4.2); Glucose 87 mg/dL (70-99); Low Density Lipoprotein Calc. 112 mg/dL; Potassium 4.3 mmol/L (3.3-5.1); Triglycerides 71 mg/dL; Very Low Density Lipoprotein 14 mg/dL (5-40); Vitamin D,25 Hydroxy 38.5 ng/mL (30-100); cholesterol:hdl ratio screen 3.28
[2024-12-23 16:23] LABS: Iron 61 ug/dL (50-170)
[2024-12-25 09:08] LABS: ANTINUCLEAR ANTIBODIES DIRECT Negative (Negative)
== END | disposition home or self-care (01) ==
LOC: MFPLAB 11:32
PROVIDERS: PCP Family Medicine; Visit Provider Family Medicine
DX: K76.0 Fatty (change of) liver, not elsewhere classified (principal); M25.50 Pain in unspecified joint; R53.83 Other fatigue; D64.9 Anemia, unspecified
CPT/HCPCS: 80053; 80061; 82306; 82533; 82728; 83540; 84443; 85027; 85045; 85652; 86038; 86431